=== PATIENT | male | born 1970 | race African-American/Black ===

== ENCOUNTER 2020-03-01 09:49 | Inpatient (IN) | payer MEDICAID ==
[~2020-03-01] VITALS: Ht 172.7 cm; Wt 75.4 kg
[2020-03-01] MEDS ORDERED: Omnipaque-300 100ml vial INJ PRN (10:00)
[2020-03-01] MEDS ORDERED: Hydromorphone 0.5mg/0.5ml inj IVP ONE (10:00)
--- NOTE | 2020-03-01 10:11 | Emergency Room Report ---
History of Present Illness General Chief Complaint: Abdominal Pain Source: Patient Present Illness HPI 49-year-old male history of pancreatitis presents with recurrent epigastric pain started 7 days ago patient reports drinking after his brothers , he endorses sharp pain aggravated with alcohol no alleviating factors severity is moderate, constant he endorses nausea vomiting, no fevers no chills patient presents for evaluation and treatment Allergies: Coded Allergies: No Known Allergies (Unverified , 06/20/19) COVID-19 Screening Contact w/high risk pt: No Experienced COVID-19 symptoms?: No COVID-19 Testing performed MOTOR EQUIPMENT SERGEANT: No Patient History Past Medical History: see triage record Reviewed Nursing Documentation: PMH: Agreed; PSxH: Agreed Nursing Documentation-PMH Past Medical History: No History, Except For Hx Cardiac Problems: No - pancretitis Review of Systems All Other Systems: negative except mentioned in HPI Physical Exam Vital Signs Date Time Temp Pulse Resp B/P (MAP) Pulse Ox O2 Delivery O2 Flow Rate FiO2 03/01/20 09:56 97.9 70 17 213/100 (137) 98 Room Air Sp02 EP Interpretation: reviewed, normal General Appearance: well appearing, no apparent distress, alert Head: normocephalic, atraumatic Eyes: bilateral eye PERRL, bilateral eye EOMI ENT: uvula midline, moist mucus membranes Neck: supple, thyroid normal, supple/symm/no masses Respiratory: lungs clear, no respiratory distress, no retraction, no accessory muscle use Cardiovascular #1: normal peripheral pulses, no edema, no gallop, no murmur, tachycardia Gastrointestinal: soft, no guarding, no rebound, tenderness - Epigastrically Musculoskeletal: normal inspection Neurologic: alert, oriented x3 Psychiatric: mood/affect normal Skin: no rash, warm/dry Procedures Critical Care Time Critical Care Time Given the critical condition in which the patient arrived, the patient was immediately assessed by myself and the nurse, and cardiac monitoring initiated due to the potential for rapid decompensation of the patient's clinical condition. During the course of the patient's stay, I spent a considerable amount of time at the bedside performing serial re-evaluations of the patient's hemodynamic and clinical status because of the recognized potential threat to life or limb in this condition. I then had a chance to review not only all of the available current laboratory and radiographic studies obtained today, but I also reviewed old records available to me at the time. Additionally, any [facility] information available including dry cleaner records were reviewed. Sequential vital signs were obtained. Critical Care time of 33 minutes was performed exclusive of billable procedures. Medical Decision Making Diagnostic Impression: Primary Impression: Abdominal pain Qualified Codes: R10.9 - Unspecified abdominal pain Additional Impressions: WILMA (acute kidney injury) GI bleed Qualified Codes: K92.2 - Gastrointestinal hemorrhage, unspecified ER Course 49-year-old male presents with epigastric pain differential diagnosis includes alcoholic gastritis, pancreatitis, GI bleed, ulcer Reevaluation 10:21 AM patient is vomiting blood Patient given Protonix, patient also found to have an WILMA, patient resuscitated with NS. Protonix for possible GI bleed Patient admitted to Dr. Blair Navarro Laboratory Tests Test 03/01/20 10:16 03/01/20 12:15 White Blood Count 7.6 K/UL (4.8-10.8) Red Blood Count 7.05 M/UL (4.70-6.10) H Hemoglobin 19.6 G/DL (14.2-18.0) *H Hematocrit 58.2 % (42.0-52.0) H Mean Corpuscular Volume 83 FL (80-99) Mean Corpuscular Hemoglobin 27.8 PG (27.0-31.0) Mean Corpuscular Hemoglobin Concent 33.7 G/DL (32.0-36.0) Red Cell Distribution Width 11.5 % (11.6-14.8) L Platelet Count 271 K/UL (150-450) Mean Platelet Volume 6.7 FL (6.5-10.1) Neutrophils (%) (Auto) 54.2 % (45.0-75.0) Lymphocytes (%) (Auto) 32.1 % (20.0-45.0) Monocytes (%) (Auto) 8.4 % (1.0-10.0) Eosinophils (%) (Auto) 0.6 % (0.0-3.0) Basophils (%) (Auto) 4.8 % (0.0-2.0) H Sodium Level 127 MMOL/L (136-145) L Potassium Level 4.3 MMOL/L (3.5-5.1) Chloride Level 89 MMOL/L (98-107) L Carbon Dioxide Level 25 MMOL/L (21-32) Anion Gap 13 mmol/L (5-15) Blood Urea Nitrogen 75 mg/dL (7-18) H Creatinine 3.2 MG/DL (0.55-1.30) H Estimated Glomerular Filtration Rate 25.3 mL/min (>60) Glucose Level 144 MG/DL (74-106) H Calcium Level 10.2 MG/DL (8.5-10.1) H Total Bilirubin 0.8 MG/DL (0.2-1.0) Aspartate Amino Transferase (AST) 32 U/L (15-37) Alanine Aminotransferase (ALT) 33 U/L (12-78) Alkaline Phosphatase 57 U/L (46-116) Total Creatine Kinase 635 U/L (26-308) H Troponin I 0.003 ng/mL (0.000-0.056) Total Protein 8.5 G/DL (6.4-8.2) H Albumin 5.0 G/DL (3.4-5.0) Globulin 3.5 g/dL Albumin/Globulin Ratio 1.4 (1.0-2.7) Lipase 345 U/L (73-393) Urine Opiates Screen Negative (NEGATIVE) Urine Barbiturates Screen Negative (NEGATIVE) Phencyclidine (PCP) Screen Negative (NEGATIVE) Urine Amphetamines Screen Negative (NEGATIVE) Urine Benzodiazepines Screen Negative (NEGATIVE) Urine Cocaine Screen Negative (NEGATIVE) Urine Marijuana (THC) Screen Positive (NEGATIVE) H Microbiology Date/Time Source Procedure Growth Status 03/01/20 11:25 Nasopharynx SARS-CoV-2 RdRp Gene Assay - Final Complete EKG Diagnostic Results EKG Time: 10:00 EP Interpretation: Sinus tachycardia, rate 105, QTc 417, no acute ST lesions, normal axis Rhythm Strip Diag. Results Rhythm Strip Time: 10:11 EP Interpretation: yes Rate: 110 Rhythm: other - Sinus tachycardia Chest X-Ray Diagnostic Results Chest X-Ray Diagnostic Results : Chest X-Ray Ordered: Yes # of Views/Limited/Complete: 1 View Indication: Chest Pain EP Interpretation: Yes Interpretation: no consolidation, no effusion, no pneumothorax, no acute cardiopulmonary disease Impression: No acute disease Electronically Signed by: Keshawn Neil MD CT/MRI/US Diagnostic Results CT/MRI/US Diagnostic Results : Impression Procedure: CT Abdomen Pelvis WO Contrast Indication: Abdominal pain Technique: Spiral acquisitions obtained through the abdomen and pelvis. No oral contrast utilized, per emergency room physician request No IV contrast utilized, per referring physician request.. Multiplanar reconstructions were generated. Total dose length product 236mGycm. CTDIvol(s) 4 mGy. Dose reduction achieved using automated exposure control Comparison: 06/20/2019 Findings: Lack of enteric contrast limits assessment of the GI tract. No evidence of diverticulosis or diverticulitis. The appendix is normal. No small bowel distention. No free or loculated intraperitoneal gas or fluid is evident. Distal esophagus, stomach, duodenum are unremarkable. Lack of IV contrast limits assessment of the solid organs. The liver, gallbladder, bile ducts, pancreas, spleen, adrenals, kidneys are unremarkable. No retroperitoneal or mesenteric mass or adenopathy. No pelvic mass or adenopathy. The included lung bases are clear. The bones are unremarkable. Impression: Limited assessment of the GI tract, due to lack of enteric contrast administration No definite acute or significant abnormality The CT scanner at [facility] is accredited by the [employer] and the scans are performed using protocols designed to limit radi ation exposure to as low as reasonably achievable to attain images of sufficient resolution adequate for diagnostic evaluation. Dictated By: Gilmar Alonzo MD Electronically Signed By:Gilmar Alonzo MD Signed Date/Time03/01/20 1412 CC: Keshawn Neil [id number] 0 Last Vital Signs Date Time Temp Pulse Resp B/P (MAP) Pulse Ox O2 Delivery O2 Flow Rate FiO2 03/01/20 09:56 97.9 70 17 213/100 (137) 98 Room Air Disposition: ADMITTED INPATIENT Condition: Critical Scripts No Active Prescriptions or Reported Meds Keshawn Neil MD Mar 01, 2020 10:11
--- NOTE | 2020-03-01 10:15 | NUR ---
ED Nurse Note: Patient presents to ER due to right lower abdominal pain with N/V (bile). Patient was recently d/c from [facility] 2 days ago for same complaint. Patient reports he started drinking beer 2 cans a day x 1 weekn as his brother recently . Reports no cough, loss of taste or smell. Patient had Covid test and it was negative. Patient awake, alert, oriented x 4. Regular, unlabored breathing noted. Patient has mask on. Placed patient on quality assurance monitor body. Bed in lowest position. Call light within reach.
--- NOTE | 2020-03-01 10:25 | NUR ---
ED Nurse Note: Patient c/o abdominal pain, cramping, N/V. Patient vomited pink colored emesis, approximately 30ml @ 1017. Dr. Patterson notified and came to bedside. Placed patient in semi-sebastian position. Increased pain with high sebastian position. Emesis bag/ urinal at bedside. Provided comfort measures. Bed in lowset position.
[2020-03-01] MEDS ORDERED: Pantoprazole Inj IVP ONE (10:30)
[2020-03-01 10:37] VITALS: BP 138/107
[2020-03-01 10:39] LABS: BASOPHILS % (AUTO) 4.8 % (0.0-2.0); EOSINOPHILS % (AUTO) 0.6 % (0.0-3.0); HEMATOCRIT 58.2 % (42.0-52.0); LYMPHOCYTES % (AUTO) 32.1 % (20.0-45.0); MEAN CORPUSCULAR VOLUME 83 FL (80-99); MONOCYTES % (AUTO) 8.4 % (1.0-10.0); NEUTROPHILS % (AUTO) 54.2 % (45.0-75.0); PLATELET COUNT 271 K/UL (150-450); RED BLOOD COUNT 7.05 M/UL (4.70-6.10); RED CELL DISTRIBUTION WIDTH 11.5 % (11.6-14.8); WHITE BLOOD COUNT 7.6 K/UL (4.8-10.8)
--- NOTE | 2020-03-01 10:40 | NUR ---
ED Nurse Note: Patient reports decreased abdominal pain after vomiting. No facial grimacing or guarding noted. Patient in on phone.
[2020-03-01 10:44] LABS: HEMOGLOBIN 19.6 G/DL (14.2-18.0)
[2020-03-01 10:52] LABS: ANION GAP 13 mmol/L (5-15); BLOOD UREA NITROGEN 75 mg/dL (7-18); CALCIUM 10.2 MG/DL (8.5-10.1); CARBON DIOXIDE 25 MMOL/L (21-32); CHLORIDE 89 MMOL/L (98-107); CREATININE 3.2 MG/DL (0.55-1.30); POTASSIUM 4.3 MMOL/L (3.5-5.1); SODIUM 127 MMOL/L (136-145)
[2020-03-01 11:03] LABS: ALANINE AMINOTRANSFERASE 33 U/L (12-78); ALBUMIN/GLOBULIN RATIO 1.4 (1.0-2.7); ALKALINE PHOSPHATASE 57 U/L (46-116); ASPARTATE AMINO TRANSFERASE 32 U/L (15-37); BILIRUBIN,TOTAL 0.8 MG/DL (0.2-1.0); CREATINE KINASE 635 U/L (26-308)
--- NOTE | 2020-03-01 11:12 | NUR ---
ED Nurse Note: Report given to GABY Hancock.
--- NOTE | 2020-03-01 12:09 | NUR ---
ED Nurse Note: Patient has abnormal CR 3.2. Dr. Neil notified and ordered CT abd/pelvis without contrast.
--- NOTE | 2020-03-01 12:30 | NUR ---
ED Nurse Note: Patient voided x 1 and urine sent.
[2020-03-01 12:54] VITALS: BP 149/92
--- NOTE | 2020-03-01 12:54 | NUR ---
ED Nurse Note: Patient resting in bed. Reports no pain. Bed in lowest position. Urinal at bedside.
--- NOTE | 2020-03-01 13:00 | NUR ---
ED Nurse Note: called equipment operator/laborer/supervisor and will process UA.
[2020-03-01 14:00] VITALS: BP 124/72
--- NOTE | 2020-03-01 14:11 | Consultation ---
Consult Note Consult Note I am asked to evaluate the patient at the request of Dr. Navarro for renal failure 49-year-old male history of pancreatitis presents with recurrent epigastric pain started 7 days ago patient reports drinking after his brothers , he endorses sharp pain aggravated with alcohol no alleviating factors severity is moderate, constant he endorses nausea vomiting, no fevers no chills patient presents for evaluation and treatment No Known Allergies (Unverified , 06/20/19) Patient has history of drinking alcohol and marijuana abuse COVID-19 Screening Contact w/high risk pt: No Experienced COVID-19 symptoms?: No COVID-19 Testing performed COUPON COLLECTION CLERK: No Past Medical History: No History, Except For Hx Cardiac Problems: No - pancretitis Vital Signs Date Time Temp Pulse Resp B/P (MAP) Pulse Ox O2 Delivery O2 Flow Rate FiO2 03/01/20 09:56 97.9 70 17 213/100 (137) 98 Room Air Sp02 EP Interpretation: reviewed, normal PHYSICAL EXAMINATION: GENERAL: Pleasant man, seen in his room. HEENT: Normocephalic and atraumatic. Sclerae anicteric. Oropharynx clear. NECK: Supple. CHEST: Clear to auscultation. CARDIOVASCULAR: Revealed a regular rate. ABDOMEN: Soft with minimal central tenderness to palpation without guarding or rebound. EXTREMITIES: Revealed no edema. NEUROLOGIC: Exam was noted. LABORATORY DATA: Reviewed and most notably the patient is hemoconcentrated and also he has a low sodium of 125 with renal failure and a creatinine of 2.2. His total CPK was somewhat elevated, but he is receiving IV fluids. . Assessment/Plan Imp: Acute renal failure, dehydration, possible rhabdo Hyponatremia, electrolyte imbalances EtOH abuse Abdominal pain, gastritis, history of pancreatitis Positive drug screen Plan: Hydrate with saline Monitor renal parameters Monitor hemoglobin hematocrit Per orders Henry Washington MD Mar 01, 2020 14:11
[2020-03-01] MEDS ORDERED: Metoclopramide 10mg/2ml Inj IVP PRN (14:15)
--- NOTE | 2020-03-01 14:18 | Diagnostic Imaging Report ---
Indication: Abdominal pain Technique: Spiral acquisitions obtained through the abdomen and pelvis. No oral contrast utilized, per emergency room physician request No IV contrast utilized, per referring physician request.. Multiplanar reconstructions were generated. Total dose length product 236mGycm. CTDIvol(s) 4 mGy. Dose reduction achieved using automated exposure control Comparison: 06/20/2019 Findings: Lack of enteric contrast limits assessment of the GI tract. No evidence of diverticulosis or diverticulitis. The appendix is normal. No small bowel distention. No free or loculated intraperitoneal gas or fluid is evident. Distal esophagus, stomach, duodenum are unremarkable. Lack of IV contrast limits assessment of the solid organs. The liver, gallbladder, bile ducts, pancreas, spleen, adrenals, kidneys are unremarkable. No retroperitoneal or mesenteric mass or adenopathy. No pelvic mass or adenopathy. The included lung bases are clear. The bones are unremarkable. Impression: Limited assessment of the GI tract, due to lack of enteric contrast administration No definite acute or significant abnormality The CT scanner at [facility] is accredited by the [employer] and the scans are performed using protocols designed to limit radiation exposure to as low as reasonably achievable to attain images of sufficient resolution adequate for diagnostic evaluation.
--- NOTE | 2020-03-01 14:42 | NUR ---
ED Nurse Note: Report given to GABY Marcos at [facility].
--- NOTE | 2020-03-01 14:45 | NUR ---
NURSE NOTES: Nurse report received from MECHANICAL MANUFACTURING TECHNICIAN Eileen peterson a new admission from ED.
--- NOTE | 2020-03-01 14:57 | NUR ---
ED Nurse Note: Spoke to serg Terrell and confirmed that they will process UA.
--- NOTE | 2020-03-01 14:58 | NUR ---
ED Nurse Note: TRANSFER TO FLOOR: Patient transferred to as ordered. Report given to GABY Marcos. Patient transferred to SDU with GABY Hancock and EMANI Arevalo with all his belongings.
--- NOTE | 2020-03-01 15:00 | NUR ---
NURSE NOTES: Received pt ,a new admission fr ED brought to SDU per bed awake alert oriented accompanied by a transporter and INSPECTOR MACHINE CUT GLASS Clara.Pt on RA noted no resp distress,denies abd pain at this time,SR on the monitor,IV site to LH intact ,SR up x2 HOB elevated,bed lock in lowest position,call blackmon placed at bedside,instructed to use if assistance needed,verbalized understanding,will continue with plans of care.
[2020-03-01 15:02] LABS: APPEARANCE,URINE CLEAR; BILIRUBIN, URINE NEGATIVE (NEGATIVE); COLOR,URINE PALE YELLOW; GLUCOSE, URINE (UA) NEGATIVE (NEGATIVE); KETONES,URINE NEGATIVE (NEGATIVE); LEUKOCYTE ESTERASE ,URINE NEGATIVE (NEGATIVE); NITRITE,URINE NEGATIVE (NEGATIVE); PH,URINE 5 (4.5-8.0); PROTEIN,URINE 2+ (NEGATIVE); UROBILINOGEN,URINE NORMAL MG/DL (0.0-1.0)
--- NOTE | 2020-03-01 15:30 | NUR ---
NURSE NOTES: Call placed to DR Navarro for admission orders spoke with charter boat operator Ginny.
--- NOTE | 2020-03-01 17:00 | NUR ---
NURSE NOTES: Dr Rojo called asking for the pt's room no.asked for diet order but no order given, said he had not seen the pt.
--- NOTE | 2020-03-01 17:24 | Diagnostic Imaging Report ---
Indication: Cough Technique: One view of the chest Comparison: none Findings: Lungs and pleural spaces are clear. Heart size is normal. Impression: No acute process
--- NOTE | 2020-03-01 19:00 | NUR ---
NURSE NOTES: Pt ambulated to bathroom with steady gait,would try to do BM
--- NOTE | 2020-03-01 19:26 | NUR ---
NURSE HAND-OFF REPORT: Important Events on Shift:N/A Patient Status: Stable Diet: NPO Pending Orders: N/A Pending Results/Labs: Pending MD notification:N/A Latest Vital Signs: Temperature 98.5 , Pulse 73 , B/P 149 /92 , Respiratory Rate 16 , O2 SAT 99 , Room Air, O2 Flow Rate . Vital Sign Comment: N/A EKG Rhythm: Sinus Rhythm Rhythm change?: N MD Notified?: - MD Response: Latest Coronel Fall Score: 0 Fall Risk: Low Risk Safety Measures: Call light Within Reach, Bed Alarm Zone 1, Side Rails Side Rails x2, Bed position Low and Locked. Fall Precautions: Report given to Dulce Maria Berman RN.
--- NOTE | 2020-03-01 19:27 | NUR ---
NURSE NOTES: Received pt from GABY Marcos. Pt awake, alert, and talkative. Called and left a message with Dr. Lupe ramires. Awaiting call back. Bed in lowest position. Call light within reach. Will continue to monitor.
--- NOTE | 2020-03-01 19:59 | NUR ---
NURSE NOTES: Called and left a message with Dr. Navarro's cell phone number. Awaiting call back.
--- NOTE | 2020-03-01 20:08 | General Progress Note ---
Subjective Allergies: Coded Allergies: No Known Allergies (Unverified , 06/20/19) Objective Last 24 Hour Vital Signs Date Time Temp Pulse Resp B/P (MAP) Pulse Ox O2 Delivery O2 Flow Rate FiO2 03/01/20 16:00 Room Air 03/01/20 15:36 Room Air 03/01/20 15:35 73 03/01/20 14:43 74 14 136/89 99 Room Air 03/01/20 14:00 98.6 74 14 124/72 99 Room Air 03/01/20 12:54 98.5 82 16 149/92 99 Room Air 03/01/20 10:44 97.8 03/01/20 10:37 98 16 138/107 99 Room Air 03/01/20 10:15 110 18 Room Air 03/01/20 09:56 97.9 70 17 213/100 (137) 98 Room Air Laboratory Tests 03/01/20 10:16: White Blood Count 7.6, Red Blood Count 7.05H, Hemoglobin 19.6*H, Hematocrit 58.2H, Mean Corpuscular Volume 83, Mean Corpuscular Hemoglobin 27.8, Mean Corpuscular Hemoglobin Concent 33.7, Red Cell Distribution Width 11.5L, Platelet Count 271, Mean Platelet Volume 6.7, Neutrophils (%) (Auto) 54.2, Lymphocytes (%) (Auto) 32.1, Monocytes (%) (Auto) 8.4, Eosinophils (%) (Auto) 0.6, Basophils (%) (Auto) 4.8H, Sodium Level 127L, Potassium Level 4.3, Chloride Level 89L, Carbon Dioxide Level 25, Anion Gap 13, Blood Urea Nitrogen 75H, Creatinine 3.2H, Estimat Glomerular Filtration Rate 25.3, Glucose Level 144H, Calcium Level 10.2H , Total Bilirubin 0.8, Aspartate Amino Transf (AST/SGOT) 32, Alanine Am inotransferase (ALT/SGPT) 33, Alkaline Phosphatase 57, Total Creatine Kinase 635H, Troponin I 0.003, Total Protein 8.5H, Albumin 5.0, Globulin 3.5, Albumin/Globulin Ratio 1.4, Lipase 345 03/01/20 12:15: Urine Color Pale yellow, Urine Appearance Clear, Urine pH 5, Urine Specific [place] 1.020, Urine Protein 2+H, Urine Glucose (UA) Negative, Urine Ketones Negative, Urine Blood 2+H, Urine Nitrite Negative, Urine Bilirubin Negative, Urine Urobilinogen Normal, Urine Leukocyte Esterase Negative, Urine RBC 2-4H, Urine WBC 2-4, Urine Squamous Epithelial Cells Occasional, Urine Bacteria Few, Urine Hyaline Casts 10-15H, Urine Random Sodium < 20L, Urine Opiates Screen Negative, Urine Barbiturates Screen Negative, Phencyclidine (PCP) Screen Negative, Urine Amphetamines Screen Negative, Urine Benzodiazepines Screen Negative, Urine Cocaine Screen Negative, Urine Marijuana (THC) Screen PositiveH Height (Feet): 5 Height (Inches): 8.00 Weight (Pounds): 172 Assessment/Plan Assessment/Plan: Assessment - abd pain, ? EtOH gastritis - Etoh abuse - dehydration, free water deficit - h/o pancreatitis Recommendations - clear liquid - PPI - Follow labs and exam - check OB Thank you MD Mike Mckeon Payman MD Mar 01, 2020 20:08
--- NOTE | 2020-03-01 20:15 | NUR ---
NURSE NOTES: Dr. Navarro called back saying that Felix already put orders and to consult Carlos Eduardoflavio. Will call Dr. Washington for a diet and DVT prophylaxis order. Will also ask for something for pain.
--- NOTE | 2020-03-01 20:25 | NUR ---
NURSE NOTES: Dr. Washington called and gave the following orders: - NPO except meds - heparin 5000 Q12hr - He will put pain meds in himself. Will input orders and continue to monitor.
[2020-03-01] MEDS ORDERED: Hydromorphone 0.5mg/0.5ml inj IVP PRN (20:30)
[2020-03-01 20:46] VITALS: BP 125/78
--- NOTE | 2020-03-01 21:15 | Consultation ---
DATE OF CONSULTATION: 03/01/2020 GASTROENTEROLOGY CONSULTATION REPORT CONSULTING PHYSICIAN: Jessica Mckeon MD. CHIEF COMPLAINT: I was asked to see this patient for evaluation of abdominal pain. HISTORY OF PRESENT ILLNESS: The patient is a 49-year-old man with a history of alcohol use who comes into the hospital with a 4 to 5 days of abdominal pain. He has been vomiting for about 2 days. He reports the color has been green in the emesis. He has had no bowel movements. He drinks few beers and also whisky daily. He has had a past history of pancreatitis. FAMILY HISTORY: Positive for pancreatitis in the mother. SOCIAL HISTORY: Patient is . He has 4 children of his own and 4 adopted children. He smokes marijuana and drinks alcohol as described. REVIEW OF SYSTEMS: The patient reports has drank red color juice before his emesis today and therefore the red colored emesis in the emergency room may have been the juice color. PHYSICAL EXAMINATION: GENERAL: Pleasant man, seen in his room. HEENT: Normocephalic and atraumatic. Sclerae anicteric. Oropharynx clear. NECK: Supple. CHEST: Clear to auscultation. CARDIOVASCULAR: Revealed a regular rate. ABDOMEN: Soft with minimal central tenderness to palpation without guarding or rebound. EXTREMITIES: Revealed no edema. NEUROLOGIC: Exam was noted. LABORATORY DATA: Reviewed and most notably the patient is hemoconcentrated and also he has a low sodium of 125 with renal failure and a creatinine of 2.2. His total CPK was somewhat elevated, but he is receiving IV fluids. ASSESSMENT: This patient presents with abdominal pain, nausea, vomiting, and he is volume depleted. He should receive aggressive IV hydration and his counts and numbers should be all followed. A proton pump inhibitor can be given and diet can be slowly advanced. He may have had upper gastrointestinal bleeding, but his blood counts can be followed and the stools can be checked for Hemoccult. A consideration can be made to do an endoscopy if necessary. He was strongly advised to discontinue alcohol. RECOMMENDATIONS: Per above discussion and per orders written in the chart. Thank you for asking me to participate in the care of this patient. Jessica Mckeon M.D. DR: JANET JOB#: [id number] CC: SHORTY
[2020-03-01] MEDS: Pantoprazole Inj IVP SCH (21:21)
[2020-03-02] VITALS: BP 124/71
[2020-03-02 04:00] VITALS: BP 121/71
[2020-03-02 05:37] LABS: BASOPHILS % (AUTO) 1.7 % (0.0-2.0); HEMATOCRIT 38.1 % (42.0-52.0); HEMOGLOBIN 12.9 G/DL (14.2-18.0); LYMPHOCYTES % (AUTO) 36.7 % (20.0-45.0); MEAN CORPUSCULAR VOLUME 83 FL (80-99); MONOCYTES % (AUTO) 9.9 % (1.0-10.0); NEUTROPHILS % (AUTO) 48.7 % (45.0-75.0); PLATELET COUNT 203 K/UL (150-450); RED BLOOD COUNT 4.57 M/UL (4.70-6.10); RED CELL DISTRIBUTION WIDTH 11.6 % (11.6-14.8); WHITE BLOOD COUNT 6.7 K/UL (4.8-10.8)
[2020-03-02 06:21] LABS: ALANINE AMINOTRANSFERASE 36 U/L (12-78); ALBUMIN 3.3 G/DL (3.4-5.0); ALBUMIN/GLOBULIN RATIO 1.6 (1.0-2.7); ALKALINE PHOSPHATASE 37 U/L (46-116); ANION GAP 7 mmol/L (5-15); ASPARTATE AMINO TRANSFERASE 30 U/L (15-37); BILIRUBIN,TOTAL 0.4 MG/DL (0.2-1.0); BLOOD UREA NITROGEN 43 mg/dL (7-18); CALCIUM 7.6 MG/DL (8.5-10.1); CARBON DIOXIDE 26 MMOL/L (21-32); CHLORIDE 101 MMOL/L (98-107); CHOLESTEROL 99 MG/DL (< 200); CREATINE KINASE 497 U/L (26-308); CREATININE 1.9 MG/DL (0.55-1.30); GAMMA GLUTAMYL TRANSPEPTIDASE 18 U/L (5-85); HDL CHOLESTEROL 34 MG/DL (40-60); PHOSPHORUS 2.4 MG/DL (2.5-4.9); POTASSIUM 3.6 MMOL/L (3.5-5.1); SODIUM 134 MMOL/L (136-145); TRIGLYCERIDES 76 MG/DL (30-150)
--- NOTE | 2020-03-02 07:20 | NUR ---
NURSE NOTES: Received report from GABY العراقي. Pt is awake, lying comfortably in bed, not in acute distress. Pt is alert and oriented, following instructions. Pt is NPO upon admission, denies abdominal pain. COVID neg., ambulatory, steady. Sinus Rhythm on the satellite project site monitor. Skin is intact. IV is intact and patent. Will continue to monitor the pt.
--- NOTE | 2020-03-02 07:27 | NUR ---
NURSE HAND-OFF REPORT: Important Events on Shift: Received orders. Pt no longer experiencing abdominal pain or nausea Patient Status: stable Diet: npo Pending Orders: y Pending Results/Labs:y Pending MD notification:y Latest Vital Signs: Temperature 97.4 , Pulse 85 , B/P 121 /71 , Respiratory Rate 20 , O2 SAT 98 , Room Air, O2 Flow Rate . Vital Sign Comment: stable EKG Rhythm: Sinus Rhythm Rhythm change?: N MD Notified?: - MD Response: Latest Coronel Fall Score: 35 Fall Risk: Medium Risk Safety Measures: Call light Within Reach, Bed Alarm Zone 1, Side Rails Side Rails x2, Bed position Low and Locked. Fall Precautions: n Yellow Socks Yellow Gown Door Sign Patient Fall Education y Report given to GABY Chavarria.
--- NOTE | 2020-03-02 07:49 | NUR ---
NURSE NOTES: Left a message to Dr. Mckeon regarding pt's diet. Awaiting call back and new order.
[2020-03-02 08:00] VITALS: BP 119/63
[2020-03-02] MEDS: Pantoprazole Inj IVP SCH (08:43)
[2020-03-02] MEDS: Heparin 5000 units/ml inj SUBQ SCH ×2 (08:44→21:26)
--- NOTE | 2020-03-02 09:21 | Nephrology Progress Note ---
Assessment/Plan Problem List: (1) WILMA (acute kidney injury) (2) Rhabdomyolysis (3) Hyponatremia (4) Dehydration (5) Elevated lipase Assessment Acute renal failure, dehydration, possible rhabdo Hyponatremia, electrolyte imbalances EtOH abuse Abdominal pain, gastritis, history of pancreatitis Positive drug screen Plan March 02: Normal saline down to 75 cc an hour. Continue per GI. Continue to monitor renal parameters. Okay to transfer to [facility] from renal standpoint of view. Hydrate with saline Monitor renal parameters Monitor hemoglobin hematocrit Per orders Subjective ROS Limited/Unobtainable: No Constitutional: Reports: malaise Objective Objective Last 24 Hour Vital Signs Date Time Temp Pulse Resp B/P (MAP) Pulse Ox O2 Delivery O2 Flow Rate FiO2 03/02/20 04:00 85 03/02/20 04:00 97.4 80 20 121/71 (88) 98 03/02/20 04:00 Room Air 03/02/20 00:00 Room Air 03/02/20 00:00 99.1 83 20 124/71 (88) 98 03/02/20 00:00 79 03/01/20 20:46 98.8 72 20 125/78 (94) 100 03/01/20 20:00 Room Air 03/01/20 20:00 75 03/01/20 16:00 Room Air 03/01/20 15:36 Room Air 03/01/20 15:35 73 03/01/20 14:43 74 14 136/89 99 Room Air 03/01/20 14:00 98.6 74 14 124/72 99 Room Air 03/01/20 12:54 98.5 82 16 149/92 99 Room Air 03/01/20 10:44 97.8 03/01/20 10:37 98 16 138/107 99 Room Air 03/01/20 10:15 110 18 Room Air 03/01/20 09:56 97.9 70 17 213/100 (137) 98 Room Air Intake and Output 03/01/20 03/02/20 19:00 07:00 Intake Total 3125 ml Output Total 430 ml Balance 2695 ml Intake IV Total 3125 ml Output Urine Total 400 ml Emesis 30 ml Laboratory Tests 03/01/20 10:16: White Blood Count 7.6, Red Blood Count 7.05H, Hemoglobin 19.6*H, Hematocrit 58.2H, Mean Corpuscular Volume 83, Mean Corpuscular Hemoglobin 27.8, Mean C orpuscular Hemoglobin Concent 33.7, Red Cell Distribution Width 11.5L, Platelet Count 271, Mean Platelet Volume 6.7, Neutrophils (%) (Auto) 54.2, Lymphocytes (%) (Auto) 32.1, Monocytes (%) (Auto) 8.4, Eosinophils (%) (Auto) 0.6, Basophils (%) (Auto) 4.8H, Sodium Level 127L, Potassium Level 4.3, Chloride Level 89L, Carbon Dioxide Level 25, Anion Gap 13, Blood Urea Nitrogen 75H, Creatinine 3.2H, Estimat Glomerular Filtration Rate 25.3, Glucose Level 144H, Calcium Level 10.2H , Total Bilirubin 0.8, Aspartate Amino Transf (AST/SGOT) 32, Alanine Aminotransferase (ALT/SGPT) 33, Alkaline Phosphatase 57, Total Creatine Kinase 635H, Troponin I 0.003, Total Protein 8.5H, Albumin 5.0, Globulin 3.5, Albumin/Globulin Ratio 1.4, Lipase 345 03/01/20 12:15: Urine Color Pale yellow, Urine Appearance Clear, Urine pH 5, Urine Specific [place] 1.020, Urine Protein 2+H, Urine Glucose (UA) Negative, Urine Ketones Negative, Urine Blood 2+H, Urine Nitrite Negative, Urine Bilirubin Negative, Urine Urobilinogen Normal, Urine Leukocyte Esterase Negative, Urine RBC 2-4H, Urine WBC 2-4, Urine Squamous Epithelial Cells Occasional, Urine Bacteria Few, Urine Hyaline Casts 10-15H, Urine Random Sodium < 20L, Urine Opiates Screen Negative, Urine Barbiturates Screen Negative, Phencyclidine (PCP) Screen Negative, Urine Amphetamines Screen Negative, Urine Benzodiazepines Screen Negative, Urine Cocaine Screen Negative, Urine Marijuana (THC) Screen PositiveH 03/02/20 03:55: White Blood Count 6.7, Red Blood Count 4.57L, Hemoglobin 12.9#L, Hematocrit 38.1#L, Mean Corpuscular Volume 83, Mean Corpuscular Hemoglobin 28.1, Mean Corpuscular Hemoglobin Concent 33.7, Red Cell Distribution Width 11.6, Platelet Count 203, Mean Platelet Volume 5.7L, Neutrophils (%) (Auto) 48.7, Lymphocytes (%) (Auto) 36.7, Monocytes (%) (Auto) 9.9, Eosinophils (%) (Auto) 3.0, Basophils (%) (Auto) 1.7, Sodium Level 134L, Potassium Level 3.6, Chloride Level 101, Carbon Dioxide Level 26, Anion Gap 7, Blood Urea Nitrogen 43H, Creatinine 1.9H, Estimat Glomerular Filtration Rate 46.3, Glucose Level 104, Calcium Level 7.6#L, Total Bilirubin 0.4, Aspartate Amino Transf (AST/SGOT) 30, Alanine Aminotrans ferase (ALT/SGPT) 36, Alkaline Phosphatase 37L, Total Creatine Kinase 497H, Total Protein 5.4#L, Albumin 3.3L, Globulin 2.1, Albumin/Globulin Ratio 1.6, Lipase 554H, Hemoglobin A1c 6.0, Lactic Acid Level 0.60, Uric Acid 6.4, Phosphorus Level 2.4L, Magnesium Level 2.6H, Gamma Glutamyl Transpeptidase 18, C-Reactive Protein, Quantitative < 0.4, Pro-B-Type Natriuretic Peptide 47, Triglycerides Level 76, Cholesterol Level 99, LDL Cholesterol 54, HDL Cholesterol 34L, Cholesterol/HDL Ratio 2.9L, Vitamin B12 Level 1218H, Folate 6.2L, Thyroid Stimulating Hormone (TSH) 1.082 Height (Feet): 5 Height (Inches): 8.00 Weight (Pounds): 172 General Appearance: no apparent distress Cardiovascular: normal rate Respiratory/Chest: lungs clear Abdomen: soft, distended Objective No change Henry Washington MD Mar 02, 2020 09:21
--- NOTE | 2020-03-02 10:47 | General Progress Note ---
Subjective ROS Limited/Unobtainable: Yes Allergies: Coded Allergies: No Known Allergies (Unverified , 06/20/19) Objective Last 24 Hour Vital Signs Date Time Temp Pulse Resp B/P (MAP) Pulse Ox O2 Delivery O2 Flow Rate FiO2 03/02/20 10:08 72 03/02/20 08:00 97.5 74 20 119/63 (81) 100 74 03/02/20 08:00 Room Air 03/02/20 04:00 85 03/02/20 04:00 97.4 80 20 121/71 (88) 98 03/02/20 04:00 Room Air 03/02/20 00:00 Room Air 03/02/20 00:00 99.1 83 20 124/71 (88) 98 03/02/20 00:00 79 03/01/20 20:46 98.8 72 20 125/78 (94) 100 03/01/20 20:00 Room Air 03/01/20 20:00 75 03/01/20 16:00 Room Air 03/01/20 15:36 Room Air 03/01/20 15:35 73 03/01/20 14:43 74 14 136/89 99 Room Air 03/01/20 14:00 98.6 74 14 124/72 99 Room Air 03/01/20 12:54 98.5 82 16 149/92 99 Room Air 03/01/20 10:44 97.8 03/01/20 10:37 98 16 138/107 99 Room Air Intake and Output 03/01/20 03/02/20 19:00 07:00 Intake Total 3125 ml Output Total 430 ml Balance 2695 ml IV Total 3125 ml Output Urine Total 400 ml Emesis 30 ml Laboratory Tests 03/01/20 12:15: Urine Color Pale yellow, Urine Appearance Clear, Urine pH 5, Urine Specific [place] 1.020, Urine Protein 2+H, Urine Glucose (UA) Negative, Urine Ketones Negative, Urine Blood 2+H, Urine Nitrite Negative, Urine Bilirubin Negative, Urine Urobilinogen Normal, Urine Leukocyte Esterase Negative, Urine RBC 2-4H, Urine WBC 2-4, Urine Squamous Epithelial Cells Occasional, Urine Bacteria Few, Urine Hyaline Casts 10-15H, Urine Random Sodium < 20L, Urine Opiates Screen Negative, Urine Barbiturates Screen Negative, Phencyclidine (PCP) Screen Negative, Urine Amphetamines Screen Negative, Urine Benzodiazepines Screen Negative, Urine Cocaine Screen Negative, Urine Marijuana (THC) Screen PositiveH 03/02/20 03:55: White Blood Count 6.7, Red Blood Count 4.57L, Hemoglobin 12.9#L, Hematocrit 3 8.1#L, Mean Corpuscular Volume 83, Mean Corpuscular Hemoglobin 28.1, Mean Corpuscular Hemoglobin Concent 33.7, Red Cell Distribution Width 11.6, Platelet Count 203, Mean Platelet Volume 5.7L, Neutrophils (%) (Auto) 48.7, Lymphocytes (%) (Auto) 36.7, Monocytes (%) (Auto) 9.9, Eosinophils (%) (Auto) 3.0, Basophils (%) (Auto) 1.7, Sodium Level 134L, Potassium Level 3.6, Chloride Level 101, Carbon Dioxide Level 26, Anion Gap 7, Blood Urea Nitrogen 43H, Creatinine 1.9H, Estimat Glomerular Filtration Rate 46.3, Glucose Level 104, Hemoglobin A1c 6.0, Lactic Acid Level 0.60, Uric Acid 6.4, Calcium Level 7.6#L, Phosphorus Level 2.4L, Magnesium Level 2.6H, Total Bilirubin 0.4, Gamma Glutamyl Transpeptidase 18, Aspartate Amino Transf (AST/SGOT) 30, Alanine Aminotransferase (ALT/SGPT) 36, Alkaline Phosphatase 37L, Total Creatine Kinase 497H, C-Reactive Protein, Quantitative < 0.4, Pro-B-Type Natriuretic Peptide 47, Total Protein 5.4#L, Albumin 3.3L, Globulin 2.1, Albumin/Globulin Ratio 1.6, Triglycerides Level 76, Cholesterol Level 99, LDL Cholesterol 54, HDL Cholesterol 34L, Cholesterol/HDL Ratio 2.9L, Lipase 554H, Vitamin B12 Level 1218H, Folate 6.2L, Thyroid Stimulating Hormone (TSH) 1.082 Height (Feet): 5 Height (Inches): 8.00 Weight (Pounds): 172 General Appearance: alert EENT: normal ENT inspection Neck: normal inspection Cardiovascular: normal rate Respiratory/Chest: decreased breath sounds Abdomen: normal bowel sounds, non tender, soft Extremities: non-tender Assessment/Plan Problem List: (1) Alcohol abuse ICD Codes: F10.10 - Alcohol abuse, uncomplicated SNOMED: 48410032 (2) Elevated lipase ICD Codes: R74.8 - Abnormal levels of other serum enzymes SNOMED: 827386835 (3) Hyponatremia ICD Codes: E87.1 - Hypo-osmolality and hyponatremia SNOMED: 12010422 (4) Dehydration ICD Codes: E86.0 - Dehydration SNOMED: 70925392 (5) Abdominal pain ICD Codes: R10.9 - Unspecified abdominal pain SNOMED: 96835248 Qualifiers: Qualified Codes: R10.9 - Unspecified abdominal pain Assessment/Plan: advance diet ivf repeat labs ppi GI procedures on hold Tee Hernandez MD Mar 02, 2020 10:47
[2020-03-02 12:00] VITALS: BP 126/89
--- NOTE | 2020-03-02 12:51 | NUR ---
TRANSFER TO FLOOR: Patient transferred to 206-2, per Dr nicole order. Report given to Burak GRIFFIN]. Belongings and medications given to patient. Family and or S/O informed of transfer.
--- NOTE | 2020-03-02 13:12 | NUR ---
NURSE NOTES: RECEIVED PATIENT AND REPORT FROM PADMINI GRIFFIN. PATIENT WAS TRANSFERRED FROM SDU RM 241-1 TO TEL LM112-2. PATIENT IS AAO X4 AND ABLE TO MAKE NEEDS KNOWN. DENIES ANY PAIN OR RESPIRATORY DISTRESS AT THIS TIME. SKIN IS INTACT AND WARM ON TOUCH. IV IS INTACT AND PATENT RUNNING NS @75CC/HR. BED IS IN LOWEST POSITION WITH BEDSIDE RAILS UP X2. BRAKES ENGAGED FOR SAFETY. CALL LIGHT IS WITHIN REACH WILL CONTINUE TO MONITOR PATIENT AND CONTINUE WITH THE PLAN OF CARE.
--- NOTE | 2020-03-02 13:17 | NUR ---
CASE MANAGEMENT: REVIEW 49 YEAR OLD MALE PRESENT TO ED FROM HOME CC: ABD PAIN X1 WEEK SI: WILMA . RHABDOMYOLYSIS . DEHYDRATION . T 97.9 HR 110 RR 17 BP 213/100 SAT 98% ROOM AIR H/H 19.6/58.2 NA 127 BUN 75 CR 3.2 TOTAL CREATINE KINASE 635 LIPASE 554 IS: ZOFRAN IV X1 DILAUDID IV X1 NS IVF BOLUS X1 PROTONIX IV X1 PATIENT ADMITTED TO TELEMETRY UNIT 03/01/2020 DCP: PATIENT IS FROM HOME
[2020-03-02] MEDS: Phospha 250 Neutral tab ORAL SCH ×2 (13:27→17:50)
--- NOTE | 2020-03-02 13:46 | Cardiology Report ---
APPROVED REPORT EKG Measurement Heart [id number] ME [id number] [id number] <Conclusion> Sinus tachycardia Right atrial enlargement Nonspecific T wave abnormality Abnormal ECG
[2020-03-02 16:00] VITALS: BP 127/68
--- NOTE | 2020-03-02 16:30 | History and Physical Report ---
DATE OF ADMISSION: 03/01/2020 DATE AND TIME SEEN: 03/02/2020 at 1 p.m. CONSULTANTS: 1. Tee Hernandez MD. 2. Henry Washington MD. CHIEF COMPLAINT: Alcoholic pancreatitis, WILMA. BRIEF HISTORY: This is a 49-year-old male, who lives at home admits to drinking a lot of multiple alcohol over the past several days, came with abdominal pain and nausea, diagnosed with alcoholic pancreatitis and WILMA, admitted to [facility] for further treatment. Currently, calm in bed, feeling little bit better. No chest pain. No short of breath. Slight nausea. No vomiting. No diarrhea. PAST MEDICAL HISTORY: Includes WILMA, pancreatitis, alcoholism. PAST SURGICAL HISTORY: None. MEDICATIONS: Include phosphorus, pantoprazole, folic acid, heparin, hydromorphone, Reglan. ALLERGIES: Denies. SOCIAL HISTORY: No smoking. Positive alcohol. Positive marijuana use. PHYSICAL EXAMINATION: GENERAL: Calm in bed, oriented x3, in no acute distress. VITAL SIGNS: Temperature is 98 degrees, pulse 65, respiratory rate 20, blood pressure 126/89. CARDIOVASCULAR: No murmur. LUNGS: Distant and clear. ABDOMEN: Bowel sounds positive. Nontender. Nondistended. EXTREMITIES: No cyanosis or edema. NEUROLOGIC: Patient moves all extremities, slightly weak. LABORATORY DATA: Labs at this time show hemoglobin and hematocrit 12.9/38, otherwise CBC is normal. BMP shows sodium 134, BUN/creatinine 43/1.9. Albumin 3.3. Urinalysis is 2+ blood, 2+ protein. Urine tox positive for marijuana. ASSESSMENT: 1. Alcoholic pancreatitis. 2. WILMA. 3. Malnutrition. PLAN: 1. Detox. 2. Dietary followup. 3. IV fluids. 4. Antiemetics p.r.n. 5. Pain control. 6. GI followup. 7. CBC, BMP in the morning. Blair Navarro D.O. DR: JANELL JOB#: [id number] CC:
--- NOTE | 2020-03-02 18:56 | NUR ---
NURSE HAND-OFF REPORT: Important Events on Shift:OB STOOL COLLECTED AND SENT TO LAB Patient Status: Diet: Pending Orders: Pending Results/Labs: Pending MD notification: Latest Vital Signs: Temperature 97.7 , Pulse 84 , B/P 127 /68 , Respiratory Rate 20 , O2 SAT 98 , Room Air, O2 Flow Rate . Vital Sign Comment: STABLE EKG Rhythm: Sinus Rhythm Rhythm change?: N MD Notified?: - MD Response: Latest Coronel Fall Score: 35 Fall Risk: Medium Risk Safety Measures: Call light Within Reach, Bed Alarm Zone 1, Side Rails Side Rails x2, Bed position Low and Locked. Fall Precautions: Yellow Socks Yellow Gown Door Sign Patient Fall Education Report given to .
--- NOTE | 2020-03-02 19:30 | NUR ---
NURSE NOTES: Received report from GABY Lobato. Patient is awake, alert and oriented x 4. quality assurance monitor body is in place, shows sinus rhythm with no chest pain reported. On room air, sating 97 %. On full liquid diet, instructed and amenable. IV site is on left hand g-20, running fluid of NS @ 75cc/hour that is patent and intact. Safety measures are in place, bed in lowest and locked position, side rails up x2. Call light button and bedside table within reach, instructed to call for any assistance needed. Will continue plan of care.
[2020-03-02 20:00] VITALS: BP 128/78
--- NOTE | 2020-03-02 21:00 | NUR ---
NURSE NOTES: Patient states that he has no episode of N/V since this morning. Will call Dr. Nguyen for orders.
--- NOTE | 2020-03-02 21:30 | NUR ---
NURSE NOTES: Received an order form Dr. Gross, patient may advance his diet from full liquid to regular diet. Will carry out.
[2020-03-03] VITALS: BP 131/75
[2020-03-03 04:00] VITALS: BP 138/76
[2020-03-03 07:09] LABS: BASOPHILS % (AUTO) 1.6 % (0.0-2.0); EOSINOPHILS % (AUTO) 3.1 % (0.0-3.0); HEMATOCRIT 35.2 % (42.0-52.0); HEMOGLOBIN 11.7 G/DL (14.2-18.0); LYMPHOCYTES % (AUTO) 44.3 % (20.0-45.0); MEAN CORPUSCULAR VOLUME 85 FL (80-99); MONOCYTES % (AUTO) 11.7 % (1.0-10.0); NEUTROPHILS % (AUTO) 39.2 % (45.0-75.0); PLATELET COUNT 202 K/UL (150-450); RED BLOOD COUNT 4.15 M/UL (4.70-6.10); RED CELL DISTRIBUTION WIDTH 11.8 % (11.6-14.8); WHITE BLOOD COUNT 4.2 K/UL (4.8-10.8)
--- NOTE | 2020-03-03 07:23 | NUR ---
NURSE HAND-OFF REPORT: Important Events on Shift: Patient has been resting well the whole shift, no episode of N/V reported as well. Patient is now on regular diet. Patient Status: Patient is awake on bed, in stable condition, with no complaints made at this time. Plan of care discussed. Diet: Regular diet Pending Orders: Pending Results/Labs:NONE Pending MD notification:NONE Latest Vital Signs: Temperature 99.2 , Pulse 85 , B/P 138 /76 , Respiratory Rate 19 , O2 SAT 99 , Room Air, O2 Flow Rate . Vital Sign Comment: stable EKG Rhythm: Sinus Rhythm Rhythm change?: N MD Notified?: - MD Response: Latest Coronel Fall Score: 35 Fall Risk: Medium Risk Safety Measures: Call light Within Reach, Bed Alarm Zone 1, Side Rails Side Rails x2, Bed position Low and Locked. Fall Precautions: Yellow Socks Yellow Gown Door Sign Patient Fall Education Report given to GABY Lobato.
[2020-03-03 07:24] LABS: AMYLASE 88 U/L (25-115)
--- NOTE | 2020-03-03 07:35 | NUR ---
NURSE NOTES: RECEIVED REPORT FROM VAISHALI GRIFFIN. DENIES ANY PAIN OR RESPIRATORY DISTRESS AT THIS TIME. SKIN IS INTACT. IV IS INTACT AND PATENT RUNNING NS @75CC/HR. BED IS IN LOWEST POSITION WITH BEDSIDE RAILS UP X2. BRAKES ENGAGED FOR SAFETY. CALL LIGHT IS WITHIN REACH WILL CONTINUE TO MONITOR PATIENT AND CONTINUE WITH THE PLAN OF CARE.
--- NOTE | 2020-03-03 07:42 | General Progress Note ---
Subjective ROS Limited/Unobtainable: Yes Allergies: Coded Allergies: No Known Allergies (Unverified , 06/20/19) Objective Last 24 Hour Vital Signs Date Time Temp Pulse Resp B/P (MAP) Pulse Ox O2 Delivery O2 Flow Rate FiO2 03/03/20 04:00 99.2 85 19 138/76 (96) 99 03/03/20 03:51 72 03/03/20 00:00 84 03/03/20 00:00 98.9 90 19 131/75 (93) 98 03/02/20 21:00 Room Air 03/02/20 20:00 100.2 93 20 128/78 (95) 97 03/02/20 20:00 86 03/02/20 16:00 97.7 84 20 127/68 (87) 98 03/02/20 16:00 84 03/02/20 12:00 98.4 65 18 126/89 (101) 100 65 03/02/20 12:00 77 03/02/20 12:00 Room Air 03/02/20 10:08 72 03/02/20 08:00 97.5 74 20 119/63 (81) 100 74 03/02/20 08:00 Room Air Intake and Output 03/02/20 03/03/20 18:59 06:59 Intake Total 1090 ml 825 ml Output Total 300 ml Balance 790 ml 825 ml Intake Oral 1090 ml IV Total 825 ml Output Urine Total 300 ml # Voids 1 # Bowel Movements 3 Laboratory Tests 03/02/20 08:45: Stool Occult Blood [Pending] 03/03/20 05:50: White Blood Count 4.2L, Red Blood Count 4.15L, Hemoglobin 11.7L, Hematocrit 35.2L, Mean Corpuscular Volume 85, Mean Corpuscular Hemoglobin 28.1, Mean Corpuscular Hemoglobin Concent 33.1, Red Cell Distribution Width 11.8, Platelet Count 202, Mean Platelet Volume 6.0L, Neutrophils (%) (Auto) 39.2L, Lymphocytes (%) (Auto) 44.3, Monocytes (%) (Auto) 11.7H, Eosinophils (%) (Auto) 3.1H, Basophils (%) (Auto) 1.6, Sodium Level [Pending], Potassium Level [Pending], Chloride Level [Pending], Carbon Dioxide Level [Pending], Blood Urea Nitrogen [Pending], Creatinine [Pending], Estimat Glomerular Filtration Rate [Pending], Glucose Level [Pending], Uric Acid [Pending], Calcium Level [Pending], Phosphorus Level [Pending], Magnesium Level [Pending], Total Bilirubin [Pending], Aspartate Amino Transf (AST/SGOT) [Pending], Alanine Aminotransferase (ALT/SGPT) [Pending], Alkaline Phosphatase [Pending], Total Creatine Kinase [Pending], C-Reactive Protein, Quantitative [Pending], Pro-B-Type Natriuretic Peptide [Pending], Total Protein [Pending], Albumin [Pending], Globulin [Pending], Amylase Level 88, Lipase 520H Height (Feet): 5 Height (Inches): 8.00 Weight (Pounds): 172 General Appearance: alert EENT: PERRL/EOMI Neck: supple Cardiovascular: normal rate Respiratory/Chest: lungs clear Abdomen: hypoactive bowel sounds, tender Extremities: non-tender Assessment/Plan Problem List: (1) Alcohol abuse ICD Codes: F10.10 - Alcohol abuse, uncomplicated SNOMED: 79018309 (2) Elevated lipase ICD Codes: R74.8 - Abnormal levels of other serum enzymes SNOMED: 030614464 (3) Hyponatremia ICD Codes: E87.1 - Hypo-osmolality and hyponatremia SNOMED: 34665145 (4) Dehydration ICD Codes: E86.0 - Dehydration SNOMED: 96862758 (5) Abdominal pain ICD Codes: R10.9 - Unspecified abdominal pain SNOMED: 79817905 Qualifiers: Qualified Codes: R10.9 - Unspecified abdominal pain Assessment/Plan: advance diet to reg ivf>>will dc repeat labs ppi folic acid GI procedures on hold Tee Hernandez MD Mar 03, 2020 07:42
[2020-03-03 07:50] LABS: ALANINE AMINOTRANSFERASE 27 U/L (12-78); ALBUMIN/GLOBULIN RATIO 1.2 (1.0-2.7); ALKALINE PHOSPHATASE 36 U/L (46-116); ANION GAP 5 mmol/L (5-15); ASPARTATE AMINO TRANSFERASE 26 U/L (15-37); BILIRUBIN,TOTAL 0.2 MG/DL (0.2-1.0); BLOOD UREA NITROGEN 20 mg/dL (7-18); CALCIUM 7.9 MG/DL (8.5-10.1); CARBON DIOXIDE 27 MMOL/L (21-32); CHLORIDE 109 MMOL/L (98-107); CREATINE KINASE 378 U/L (26-308); CREATININE 1.5 MG/DL (0.55-1.30); PHOSPHORUS 2.1 MG/DL (2.5-4.9); POTASSIUM 4.4 MMOL/L (3.5-5.1); SODIUM 141 MMOL/L (136-145)
[2020-03-03 08:00] VITALS: BP 113/62
[2020-03-03] MEDS: Phospha 250 Neutral tab ORAL SCH ×3 (08:20→18:17)
[2020-03-03] MEDS: Heparin 5000 units/ml inj SUBQ SCH ×2 (08:22→22:31)
--- NOTE | 2020-03-03 08:28 | Nephrology Progress Note ---
Assessment/Plan Problem List: (1) WILMA (acute kidney injury) (2) Rhabdomyolysis (3) Hyponatremia (4) Dehydration (5) Elevated lipase Assessment Acute renal failure, dehydration, possible rhabdo Hyponatremia, electrolyte imbalances EtOH abuse Abdominal pain, gastritis, history of pancreatitis Positive drug screen Plan March 03: Renal parameters improved. CPK lower. Patient's mental status baseline. Okay to discharge from renal standpoint of view. Patient will continue to abstain from using recreational drugs and increase oral liquid intake. March 02: Normal saline down to 75 cc an hour. Continue per GI. Continue to monitor renal parameters. Okay to transfer to [facility] from renal standpoint of view. Hydrate with saline Monitor renal parameters Monitor hemoglobin hematocrit Per orders Subjective ROS Limited/Unobtainable: No Objective Objective Last 24 Hour Vital Signs Date Time Temp Pulse Resp B/P (MAP) Pulse Ox O2 Delivery O2 Flow Rate FiO2 03/03/20 04:00 99.2 85 19 138/76 (96) 99 03/03/20 03:51 72 03/03/20 00:00 84 03/03/20 00:00 98.9 90 19 131/75 (93) 98 03/02/20 21:00 Room Air 03/02/20 20:00 100.2 93 20 128/78 (95) 97 03/02/20 20:00 86 03/02/20 16:00 97.7 84 20 127/68 (87) 98 03/02/20 16:00 84 03/02/20 12:00 98.4 65 18 126/89 (101) 100 65 03/02/20 12:00 77 03/02/20 12:00 Room Air 03/02/20 10:08 72 Intake and Output 03/02/20 03/03/20 19:00 07:00 Intake Total 1165 ml 750 ml Output Total 300 ml Balance 865 ml 750 ml Intake Oral 1090 ml IV Total 75 ml 750 ml Output Urine Total 300 ml # Voids 1 # Bowel Movements 3 Current Medications Medications (Trade) Dose Ordered Sig/Elliott Route PRN Reason Start Time Stop Time Status Last Admin Dose Admin Folic Acid (Folate) 1 mg DAILY ORAL 03/03/20 09:00 04/02/20 08:59 03/03/20 08:23 Heparin Sodium (Porcine) (Heparin 5000 units/ml) 5,000 units EVERY 12 HOURS SUBQ 03/02/20 09:00 04/16/20 08:59 03/03/20 08:22 Hydromorphone HCl (Dilaudid) 0.5 mg Q4H PRN IVP For Pain 03/01/20 20:30 03/08/20 20:29 Metoclopramide HCl (Reglan) 10 mg Q6H PRN IVP Nausea & Vomiting 03/01/20 14:15 03/31/20 14:14 Pantoprazole (Protonix) 40 mg EVERY 12 HOURS ORAL 03/02/20 09:30 04/01/20 09:29 03/03/20 08:20 Phosphorus (Phospha 250 Neutral) 250 mg THREE TIMES A DAY ORAL 03/02/20 13:00 04/01/20 12:59 03/03/20 08:20 Laboratory Tests 03/02/20 08:45: Stool Occult Blood [Pending] 03/03/20 05:50: White Blood Count 4.2L, Red Blood Count 4.15L, Hemoglobin 11.7L, Hematocrit 35.2L, Mean Corpuscular Volume 85, Mean Corpuscular Hemoglobin 28.1, Mean Corpuscular Hemoglobin Concent 33.1, Red Cell Distribution Width 11.8, Platelet Count 202, Mean Platelet Volume 6.0L, Neutrophils (%) (Auto) 39.2L, Lymphocytes (%) (Auto) 44.3, Monocytes (%) (Auto) 11.7H, Eosinophils (%) (Auto) 3.1H, Basophils (%) (Auto) 1.6, Sodium Level 141, Potassium Level 4.4, Chloride Level 109H, Carbon Dioxide Level 27, Anion Gap 5, Blood Urea Nitrogen 20H, Creatinine 1.5H, Estimat Glomerular Filtration Rate > 60, Glucose Level 73L, Uric Acid 5.0, Calcium Level 7.9L, Phosphorus Level 2.1L, Magnesium Level 2.1, Total Bilirubin 0.2, Aspartate Amino Transf (AST/SGOT) 26, Alanine Aminotransferase (ALT/SGPT) 27, Alkaline Phosphatase 36L, Total Creatine Kinase 378H, C-Reactive Protein, Quantitative 0.6, Pro-B-Type Natriuretic Peptide 226H, Total Protein 5.5L, Albumin 3.0L, Globulin 2.5, Albumin/Globulin Ratio 1.2, Amylase Level 88, Lipase 520H Height (Feet): 5 Height (Inches): 8.00 Weight (Pounds): 172 General Appearance: no apparent distress Cardiovascular: normal rate Respiratory/Chest: lungs clear Abdomen: soft Objective No change Henry Washington MD Mar 03, 2020 08:28
--- NOTE | 2020-03-03 08:29 | General Progress Note ---
Subjective Constitutional: Reports: weakness Allergies: Coded Allergies: No Known Allergies (Unverified , 06/20/19) All Systems: reviewed and negative except above Subjective calm in bed Objective Last 24 Hour Vital Signs Date Time Temp Pulse Resp B/P (MAP) Pulse Ox O2 Delivery O2 Flow Rate FiO2 03/03/20 04:00 99.2 85 19 138/76 (96) 99 03/03/20 03:51 72 03/03/20 00:00 84 03/03/20 00:00 98.9 90 19 131/75 (93) 98 03/02/20 21:00 Room Air 03/02/20 20:00 100.2 93 20 128/78 (95) 97 03/02/20 20:00 86 03/02/20 16:00 97.7 84 20 127/68 (87) 98 03/02/20 16:00 84 03/02/20 12:00 98.4 65 18 126/89 (101) 100 65 03/02/20 12:00 77 03/02/20 12:00 Room Air 03/02/20 10:08 72 Intake and Output 03/02/20 03/03/20 19:00 07:00 Intake Total 1165 ml 750 ml Output Total 300 ml Balance 865 ml 750 ml Intake Oral 1090 ml IV Total 75 ml 750 ml Output Urine Total 300 ml # Voids 1 # Bowel Movements 3 Laboratory Tests 03/02/20 08:45: Stool Occult Blood [Pending] 03/03/20 05:50: White Blood Count 4.2L, Red Blood Count 4.15L, Hemoglobin 11.7L, Hematocrit 35.2L, Mean Corpuscular Volume 85, Mean Corpuscular Hemoglobin 28.1, Mean Corpuscular Hemoglobin Concent 33.1, Red Cell Distribution Width 11.8, Platelet Count 202, Mean Platelet Volume 6.0L, Neutrophils (%) (Auto) 39.2L, Lymphocytes (%) (Auto) 44.3, Monocytes (%) (Auto) 11.7H, Eosinophils (%) (Auto) 3.1H, Basophils (%) (Auto) 1.6, Sodium Level 141, Potassium Level 4.4, Chloride Level 109H, Carbon Dioxide Level 27, Anion Gap 5, Blood Urea Nitrogen 20H, Creatinine 1.5H, Estimat Glomerular Filtration Rate > 60, Glucose Level 73L, Uric Acid 5.0, Calcium Level 7.9L, Phosphorus Level 2.1L, Magnesium Level 2.1, Total Bilirubin 0.2, Aspartate Amino Transf (AST/SGOT) 26, Alanine Aminotransferase (ALT/SGPT) 27, Alkaline Phosphatase 36L, Total Creatine Kinase 378H, C-Reactive Protein, Quantitative 0.6, Pro-B-Type Natriuretic Peptide 226H, Total Protein 5.5L, Albumin 3.0L, Globulin 2.5, Albumin/Globulin Ratio 1.2, Amylase Level 88, Lipase 520H Height (Feet): 5 Height (Inches): 8.00 Weight (Pounds): 172 General Appearance: alert EENT: normal ENT inspection Neck: normal alignment Cardiovascular: normal peripheral pulses, normal rate, regular rhythm Respiratory/Chest: chest wall non-tender, lungs clear, normal breath sounds Abdomen: normal bowel sounds, non tender, soft Extremities: normal inspection Edema: no edema noted Arm (L), no edema noted Arm (R), no edema noted Leg (L), no edema noted Leg (R), no edema noted Pedal (L), no edema noted Pedal (R), no edema noted Generalized Neurologic: responsive, motor weakness Skin: normal pigmentation, warm/dry Assessment/Plan Problem List: (1) Leukopenia ICD Codes: D72.819 - Decreased white blood cell count, unspecified SNOMED: 36170666, [id number] (2) Acute kidney injury ICD Codes: N17.9 - Acute kidney failure, unspecified SNOMED: 1723972, 85207148 (3) Pancreatitis ICD Codes: K85.90 - Acute pancreatitis without necrosis or infection, unspecified SNOMED: 02028947 Status: stable, progressing Assessment/Plan: adv diet pain control cbc bmp am gi heme Blair Tamez DO Mar 03, 2020 08:29
[2020-03-03] MEDS: Thiamine 100mg tab ORAL SCH (08:42)
[2020-03-03] MEDS ORDERED: FOLIC ACID1 MG ORAL (11:20)
[2020-03-03] MEDS ORDERED: VITAMIN B-1100 M2 ORAL (11:20)
--- NOTE | 2020-03-03 11:34 | Consultation ---
History of Present Illness General Chief Complaint: Abdominal Pain Present Illness Allergies: Coded Allergies: No Known Allergies (Unverified , 06/20/19) Medication History Scheduled Folic Acid* (Folic Acid*), 1 MG ORAL DAILY Thiamine Mononitrate (Vitamin B-1), 100 MG ORAL DAILY Patient History Healthcare decision maker Resuscitation status Advanced Directive on File Physical Exam Last 24 Hour Vital Signs Date Time Temp Pulse Resp B/P (MAP) Pulse Ox O2 Delivery O2 Flow Rate FiO2 03/03/20 09:00 Room Air 03/03/20 08:00 99.1 82 18 113/62 (79) 98 03/03/20 08:00 82 03/03/20 04:00 99.2 85 19 138/76 (96) 99 03/03/20 03:51 72 03/03/20 00:00 84 03/03/20 00:00 98.9 90 19 131/75 (93) 98 03/02/20 21:00 Room Air 03/02/20 20:00 100.2 93 20 128/78 (95) 97 03/02/20 20:00 86 03/02/20 16:00 97.7 84 20 127/68 (87) 98 03/02/20 16:00 84 03/02/20 12:00 98.4 65 18 126/89 (101) 100 65 03/02/20 12:00 77 03/02/20 12:00 Room Air Intake and Output 03/02/20 03/03/20 19:00 07:00 Intake Total 1165 ml 750 ml Output Total 300 ml Balance 865 ml 750 ml Intake Oral 1090 ml IV Total 75 ml 750 ml Output Urine Total 300 ml # Voids 1 # Bowel Movements 3 Laboratory Tests Test 03/03/20 05:50 White Blood Count 4.2 K/UL (4.8-10.8) L Red Blood Count 4.15 M/UL (4.70-6.10) L Hemoglobin 11.7 G/DL (14.2-18.0) L Hematocrit 35.2 % (42.0-52.0) L Mean Corpuscular Volume 85 FL (80-99) Mean Corpuscular Hemoglobin 28.1 PG (27.0-31.0) Mean Corpuscular Hemoglobin Concent 33.1 G/DL (32.0-36.0) Red Cell Distribution Width 11.8 % (11.6-14.8) Platelet Count 202 K/UL (150-450) Mean Platelet Volume 6.0 FL (6.5-10.1) L Neutrophils (%) (Auto) 39.2 % (45.0-75.0) L Lymphocytes (%) (Auto) 44.3 % (20.0-45.0) Monocytes (%) (Auto) 11.7 % (1.0-10.0) H Eosinophils (%) (Auto) 3.1 % (0.0-3.0) H Basophils (%) (Auto) 1.6 % (0.0-2.0) Sodium Level 141 MMOL/L (136-145) Potassium Level 4.4 MMOL/L (3.5-5.1) Chloride Level 109 MMOL/L (98-107) H Carbon Dioxide Level 27 MMOL/L (21-32) Anion Gap 5 mmol/L (5-15) Blood Urea Nitrogen 20 mg/dL (7-18) H Creatinine 1.5 MG/DL (0.55-1.30) H Estimat Glomerular Filtration Rate > 60 mL/min (>60) Glucose Level 73 MG/DL (74-106) L Uric Acid 5.0 MG/DL (2.6-7.2) Calcium Level 7.9 MG/DL (8.5-10.1) L Phosphorus Level 2.1 MG/DL (2.5-4.9) L Magnesium Level 2.1 MG/DL (1.8-2.4) Total Bilirubin 0.2 MG/DL (0.2-1.0) Aspartate Amino Transf (AST/SGOT) 26 U/L (15-37) Alanine Aminotransferase (ALT/SGPT) 27 U/L (12-78) Alkaline Phosphatase 36 U/L (46-116) L Total Creatine Kinase 378 U/L (26-308) H C-Reactive Protein, Quantitative 0.6 mg/dL (0.00-0.90) Pro-B-Type Natriuretic Peptide 226 pg/mL (0-125) H Total Protein 5.5 G/DL (6.4-8.2) L Albumin 3.0 G/DL (3.4-5.0) L Globulin 2.5 g/dL Albumin/Globulin Ratio 1.2 (1.0-2.7) Amylase Level 88 U/L (25-115) Lipase 520 U/L (73-393) H Height (Feet): 5 Height (Inches): 8.00 Weight (Pounds): 172 Medications Current Medications Medications (Trade) Dose Ordered Sig/Elliott Route PRN Reason Start Time Stop Time Status Last Admin Dose Admin Acetaminophen (Tylenol) 650 mg Q4H PRN ORAL Mild Pain (Pain Scale 1-3) 03/03/20 08:30 04/02/20 08:29 Folic Acid (Folate) 1 mg DAILY ORAL 03/03/20 09:00 04/02/20 08:59 03/03/20 08:23 Heparin Sodium (Porcine) (Heparin 5000 units/ml) 5,000 units EVERY 12 HOURS SUBQ 03/02/20 09:00 04/16/20 08:59 03/03/20 08:22 Metoclopramide HCl (Reglan) 10 mg Q6H PRN IVP Nausea & Vomiting 03/01/20 14:15 03/31/20 14:14 Pantoprazole (Protonix) 40 mg EVERY 12 HOURS ORAL 03/02/20 09:30 04/01/20 09:29 03/03/20 08:20 Phosphorus (Phospha 250 Neutral) 250 mg THREE TIMES A DAY ORAL 03/02/20 13:00 04/01/20 12:59 03/03/20 08:20 Thiamine HCl (Vitamin B1) 100 mg DAILY ORAL 03/03/20 09:00 04/02/20 08:59 03/03/20 08:42 Assessment/Plan Assessment/Plan: Hematology Consultation REQ : Blair Navarro RFC: Leukopenia eval DOS: 03/03/2020 ID 49-year-old male history of pancreatitis presents with recurrent epigastric pain started 7 days ago patient reports drinking after his brothers , he endorses sharp pain aggravated with alcohol no alleviating factors severity is moderate, constant he endorses nausea vomiting, no fevers no chills patient presents for evaluation and treatment, labs reviewed, no bleeding, wbc is lower, heme consulted. 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 Patient History Past Medical History: see triage record Reviewed Nursing Documentation: PMH: Agreed; PSxH: Agreed Nursing Documentation-PMH Past Medical History: No History, Except For Hx Cardiac Problems: No - pancretitis Review of Systems All Other Systems: negative except mentioned in HPI Physical Exam General: well appearing, no apparent distress, alert Heent: normocephalic, atraumatic Neck: supple, thyroid normal, supple/symm/no masses Respiratory: lungs clear, no respiratory distress, no retraction, no accessory muscle use Cardiov: normal peripheral pulses, no edema, no gallop, no murmur, tachycardia GI: soft, no guarding, no rebound, tenderness - Epigastrically Musk: normal inspection Neurologic: alert, oriented x3 Psychiatric: mood/affect normal Skin: no rash, warm/dry Labs: noted Imaging: reviewed Assessment and Recs: # Leukopenia -- multiple etiologies could be related to underlying liver disease, etoh myelosuppresion --> peripheral smear has been ordered and does not show significant abno rmalities --> Medications have been reviewed --> Continue to monitor for improvement, trend cbc --> Hep panel and HIV have been ordered --> US abd ordered to r/o cirrhosis and hepatosplenomegaly --> reverse isolation if ANC is <2000 # Anemia of chronic disease due to underlying chronic medical issues, multifactorial v Gi bleed --> Anemia workup has been ordered, rule out gi bleed --> No evidence of hemolysis is noted, peripheral smear has been reviewed. --> Hgb goal >7. Transfuse prn. --> Epogen or iron at this time is not particularly indicated --> Medications have been reviewed --> low threshold for gi evaluation in case has occult + # EToh use hx --> hold off alcohol, other substances # Abdominal pain -> likely due to gastritis --> is on ppi # WILMA --> likely due to dehydration # GI bleed --> per vosoghi, again hold off endo # Dvt ppx scds The timing of this note does not necessarily reflect the time of the patient was seen. Greatly appreciate consultation. Lew Abreu MD Mar 03, 2020 11:34
[2020-03-03 12:00] VITALS: BP 121/74
--- NOTE | 2020-03-03 14:20 | NUR ---
CASE MANAGEMENT:REVIEW 03/03/20 SI: DEHYDRATION. RHABDOMYOLYSIS HYPONATREMIA. WILMA SPIKED TEMP LAST NIGHT TO 100.2 98.7 79 18 121/74 99% ON RA WBC+20 CR+1.5 CA-7.9 IS: THIAMINE PO QD FOLATE PO QD PROTONIX PO Q12 HEPARIN SQ Q12 IVF@75/HR : TELEMETRY STATUS DCP: FROM HOME
[2020-03-03 16:00] VITALS: BP 125/68
--- NOTE | 2020-03-03 19:28 | NUR ---
NURSE HAND-OFF REPORT: Important Events on Shift:N Patient Status: Diet: REGULAR Pending Orders: Pending Results/Labs: Pending MD notification: Latest Vital Signs: Temperature 98.9 , Pulse 73 , B/P 125 /68 , Respiratory Rate 18 , O2 SAT 98 , Room Air, O2 Flow Rate . Vital Sign Comment: STABLE EKG Rhythm: Sinus Rhythm Rhythm change?: N MD Notified?: - MD Response: Latest Coronel Fall Score: 35 Fall Risk: Medium Risk Safety Measures: Call light Within Reach, Bed Alarm Zone 1, Side Rails Side Rails x2, Bed position Low and Locked. Fall Precautions: Yellow Socks Yellow Gown Door Sign Patient Fall Education Report given to . Addendum: 03/03/20 at 1944 by LUIS ANTONIO MEDINA RN HAND OFF REPORT RACIEL GRIFFIN
--- NOTE | 2020-03-03 19:30 | NUR ---
NURSE NOTES: Important Events on Shift: Receieved report from Mayela Domínguez RN. Pt dc'd IV. Patient Status: Stable Diet: regular Pending Orders: none Pending Results/Labs: none Pending MD notification: none Latest Vital Signs: Temperature 98.6 , Pulse 90 , B/P 110 /75 , Respiratory Rate 18 , O2 SAT 100 , Room Air, O2 Flow Rate . Vital Sign Comment: EKG Rhythm: Sinus rhythm Rhythm change?: N MD Notified?: - MD Response: Latest Coronel Fall Score: 35 Fall Risk: Medium Risk Safety Measures: Call light Within Reach, Bed Alarm Zone 1, Side Rails Side Rails x2, Bed position Low and Locked. Fall Precautions: yes Yellow Socks yes Yellow Gown yes Door Sign yes Patient Fall Education yes
[2020-03-03 20:00] VITALS: BP 124/78
[2020-03-04] VITALS: BP 110/75
--- NOTE | 2020-03-04 06:31 | Hematology/Onc Progress Note ---
Assessment/Plan Assessment/Plan Assessment and Recs: # Leukopenia -- multiple etiologies could be related to underlying liver disease, etoh myelosuppresion --> peripheral smear has been ordered and does not show significant abnormalities --> Medications have been reviewed --> Continue to monitor for improvement, trend cbc --> Hep panel and HIV have been ordered --> US abd ordered to r/o cirrhosis and hepatosplenomegaly --> reverse isolation if ANC is <2000 # Anemia of chronic disease due to underlying chronic medical issues, multifactorial v Gi bleed --> Anemia workup has been ordered, rule out gi bleed --> No evidence of hemolysis is noted, peripheral smear has been reviewed. --> Hgb goal >7. Transfuse prn. --> Epogen or iron at this time is not particularly indicated --> Medications have been reviewed --> low threshold for gi evaluation in case has occult + # EToh use hx --> hold off alcohol, other substances # Abdominal pain -> likely due to gastritis --> is on ppi # WILMA --> likely due to dehydration # GI bleed --> per vosoghi, again hold off endo # Dvt ppx hep sq The timing of this note does not necessarily reflect the time of the patient was seen. Greatly appreciate consultation. Subjective Constitutional: Denies: no symptoms, chills, fever, malaise, weakness, other Cardiovascular: Denies: no symptoms, chest pain, edema, irregular heart rate, lightheadedness, palpitations, syncope, other Respiratory: Denies: no symptoms, cough, shortness of breath, SOB with excertion, SOB at rest, sputum, wheezing, other Gastrointestinal/Abdominal: Denies: no symptoms, abdomen distended, abdominal pain, black stools, tarry stools, blood in stool, constipated, diarrhea, difficulty swallowing, nausea, poor appetite, poor fluid intake, rectal bleeding, vomiting, other Genitourinary: Denies: no symptoms, burning, discharge, frequency, flank pain, hematuria, incontinence, pain, urgency, other Neurologic/Psychiatric: Denies: no symptoms, anxiety, depressed, emotional problems, headache, numbness, paresthesia, pre-existing deficit, seizure, tingling, tremors, weakness, other Endocrine: Denies: no symptoms, excessive sweating, flushing, intolerance to cold, intolerance to heat, increased hunger, increased thirst, increased urine, unexplained weight gain, unexplained weight loss, other Hematologic/Lymphatic: Denies: no symptoms, anemia, easy bleeding, easy bruising, adenopathy, other Allergies: Coded Allergies: No Known Allergies (Unverified , 06/20/19) Subjective 03/04 very agitated overnight, wants to leave, no temp noted, on hep sq Objective Objective Current Medications Medications (Trade) Dose Ordered Sig/Elliott Route PRN Reason Start Time Stop Time Status Last Admin Dose Admin Acetaminophen (Tylenol) 650 mg Q4H PRN ORAL Mild Pain (Pain Scale 1-3) 03/03/20 08:30 04/02/20 08:29 03/03/20 13:55 Folic Acid (Folate) 1 mg DAILY ORAL 03/03/20 09:00 04/02/20 08:59 03/03/20 08:23 Heparin Sodium (Porcine) (Heparin 5000 units/ml) 5,000 units EVERY 12 HOURS SUBQ 03/02/20 09:00 04/16/20 08:59 03/03/20 22:31 Metoclopramide HCl (Reglan) 10 mg Q6H PRN IVP Nausea & Vomiting 03/01/20 14:15 03/31/20 14:14 Pantoprazole (Protonix) 40 mg EVERY 12 HOURS ORAL 03/02/20 09:30 04/01/20 09:29 03/03/20 22:31 Phosphorus (Phospha 250 Neutral) 250 mg THREE TIMES A DAY ORAL 03/02/20 13:00 04/01/20 12:59 03/03/20 18:17 Thiamine HCl (Vitamin B1) 100 mg DAILY ORAL 03/03/20 09:00 04/02/20 08:59 03/03/20 08:42 Last 24 Hour Vital Signs Date Time Temp Pulse Resp B/P (MAP) Pulse Ox O2 Delivery O2 Flow Rate FiO2 03/04/20 04:03 57 03/04/20 00:00 98.6 90 18 110/75 (87) 100 03/04/20 00:00 79 03/03/20 21:00 Room Air 03/03/20 20:00 86 03/03/20 20:00 99.4 74 20 124/78 (93) 99 03/03/20 16:00 98.9 73 18 125/68 (87) 98 03/03/20 16:00 73 03/03/20 12:00 79 03/03/20 12:00 98.7 79 18 121/74 (90) 99 03/03/20 09:00 Room Air 03/03/20 08:00 99.1 82 18 113/62 (79) 98 03/03/20 08:00 82 03/03/20 04:00 99.2 85 19 138/76 (96) 99 03/03/20 03:51 72 03/03/20 00:00 84 03/03/20 00:00 98.9 90 19 131/75 (93) 98 03/02/20 21:00 Room Air 03/02/20 20:00 100.2 93 20 128/78 (95) 97 03/02/20 20:00 86 03/02/20 16:00 97.7 84 20 127/68 (87) 98 03/02/20 16:00 84 03/02/20 12:00 98.4 65 18 126/89 (101) 100 65 03/02/20 12:00 77 03/02/20 12:00 Room Air 03/02/20 10:08 72 03/02/20 08:00 97.5 74 20 119/63 (81) 100 74 03/02/20 08:00 Room Air Labs Test 03/01/20 10:16 03/01/20 12:15 03/02/20 03:55 03/02/20 08:45 White Blood Count 7.6 K/UL (4.8-10.8) 6.7 K/UL (4.8-10.8) Red Blood Count 7.05 M/UL (4.70-6.10) 4.57 M/UL (4.70-6.10) Hemoglobin 19.6 G/DL (14.2-18.0) 12.9 G/DL (14.2-18.0) Hematocrit 58.2 % (42.0-52.0) 38.1 % (42.0-52.0) Mean Corpuscular Volume 83 FL (80-99) 83 FL (80-99) Mean Corpuscular Hemoglobin 27.8 PG (27.0-31.0) 28.1 PG (27.0-31.0) Mean Corpuscular Hemoglobin Concent 33.7 G/DL (32.0-36.0) 33.7 G/DL (32.0-36.0) Red Cell Distribution Width 11.5 % (11.6-14.8) 11.6 % (11.6-14.8) Platelet Count 271 K/UL (150-450) 203 K/UL (150-450) Mean Platelet Volume 6.7 FL (6.5-10.1) 5.7 FL (6.5-10.1) Neutrophils (%) (Auto) 54.2 % (45.0-75.0) 48.7 % (45.0-75.0) Lymphocytes (%) (Auto) 32.1 % (20.0-45.0) 36.7 % (20.0-45.0) Monocytes (%) (Auto) 8.4 % (1.0-10.0) 9.9 % (1.0-10.0) Eosinophils (%) (Auto) 0.6 % (0.0-3.0) 3.0 % (0.0-3.0) Basophils (%) (Auto) 4.8 % (0.0-2.0) 1.7 % (0.0-2.0) Sodium Level 127 MMOL/L (136-145) 134 MMOL/L (136-145) Potassium Level 4.3 MMOL/L (3.5-5.1) 3.6 MMOL/L (3.5-5.1) Chloride Level 89 MMOL/L (98-107) 101 MMOL/L (98-107) Carbon Dioxide Level 25 MMOL/L (21-32) 26 MMOL/L (21-32) Anion Gap 13 mmol/L (5-15) 7 mmol/L (5-15) Blood Urea Nitrogen 75 mg/dL (7-18) 43 mg/dL (7-18) Creatinine 3.2 MG/DL (0.55-1.30) 1.9 MG/DL (0.55-1.30) Estimat Glomerular Filtration Rate 25.3 mL/min (>60) 46.3 mL/min (>60) Glucose Level 144 MG/DL (74-106) 104 MG/DL (74-106) Calcium Level 10.2 MG/DL (8.5-10.1) 7.6 MG/DL (8.5-10.1) Total Bilirubin 0.8 MG/DL (0.2-1.0) 0.4 MG/DL (0.2-1.0) Aspartate Amino Transf (AST/SGOT) 32 U/L (15-37) 30 U/L (15-37) Alanine Aminotransferase (ALT/SGPT) 33 U/L (12-78) 36 U/L (12-78) Alkaline Phosphatase 57 U/L (46-116) 37 U/L (46-116) Total Creatine Kinase 635 U/L (26-308) 497 U/L (26-308) Troponin I 0.003 ng/mL (0.000-0.056) Total Protein 8.5 G/DL (6.4-8.2) 5.4 G/DL (6.4-8.2) Albumin 5.0 G/DL (3.4-5.0) 3.3 G/DL (3.4-5.0) Globulin 3.5 g/dL 2.1 g/dL Albumin/Globulin Ratio 1.4 (1.0-2.7) 1.6 (1.0-2.7) Lipase 345 U/L (73-393) 554 U/L (73-393) Urine Color Pale yellow Urine Appearance Clear Urine pH 5 (4.5-8.0) Urine Specific [place] 1.020 (1.005-1.035) Urine Protein 2+ (NEGATIVE) Urine Glucose (UA) Negative (NEGATIVE) Urine Ketones Negative (NEGATIVE) Urine Blood 2+ (NEGATIVE) Urine Nitrite Negative (NEGATIVE) Urine Bilirubin Negative (NEGATIVE) Urine Urobilinogen Normal MG/DL (0.0-1.0) Urine Leukocyte Esterase Negative (NEGATIVE) Urine RBC 2-4 /HPF (0 - 0) Urine WBC 2-4 /HPF (0 - 0) Urine Squamous Epithelial Cells Occasional /LPF Urine Bacteria Few /HPF (NONE) Urine Hyaline Casts 10-15 /LPF (NONE) Urine Random Sodium < 20 mmol/L (20-110) Urine Opiates Screen Negative (NEGATIVE) Urine Barbiturates Screen Negative (NEGATIVE) Phencyclidine (PCP) Screen Negative (NEGATIVE) Urine Amphetamines Screen Negative (NEGATIVE) Urine Benzodiazepines Screen Negative (NEGATIVE) Urine Cocaine Screen Negative (NEGATIVE) Urine Marijuana (THC) Screen Positive (NEGATIVE) Hemoglobin A1c 6.0 % (4.3-6.0) Lactic Acid Level 0.60 mmol/L (0.4-2.0) Uric Acid 6.4 MG/DL (2.6-7.2) Phosphorus Level 2.4 MG/DL (2.5-4.9) Magnesium Level 2.6 MG/DL (1.8-2.4) Gamma Glutamyl Transpeptidase 18 U/L (5-85) C-Reactive Protein, Quantitative < 0.4 mg/dL (0.00-0.90) Pro-B-Type Natriuretic Peptide 47 pg/mL (0-125) Triglycerides Level 76 MG/DL (30-150) Cholesterol Level 99 MG/DL (< 200) LDL Cholesterol 54 mg/dL (<100) HDL Cholesterol 34 MG/DL (40-60) Cholesterol/HDL Ratio 2.9 (3.3-4.4) Vitamin B12 Level 1218 PG/ML (193-986) Folate 6.2 NG/ML (8.6-58.9) Thyroid Stimulating Hormone (TSH) 1.082 uiU/mL (0.358-3.740) Stool Occult Blood Negative (NEGATIVE) Test 03/03/20 05:50 White Blood Count 4.2 K/UL (4.8-10.8) Red Blood Count 4.15 M/UL (4.70-6.10) Hemoglobin 11.7 G/DL (14.2-18.0) Hematocrit 35.2 % (42.0-52.0) Mean Corpuscular Volume 85 FL (80-99) Mean Corpuscular Hemoglobin 28.1 PG (27.0-31.0) Mean Corpuscular Hemoglobin Concent 33.1 G/DL (32.0-36.0) Red Cell Distribution Width 11.8 % (11.6-14.8) Platelet Count 202 K/UL (150-450) Mean Platelet Volume 6.0 FL (6.5-10.1) Neutrophils (%) (Auto) 39.2 % (45.0-75.0) Lymphocytes (%) (Auto) 44.3 % (20.0-45.0) Monocytes (%) (Auto) 11.7 % (1.0-10.0) Eosinophils (%) (Auto) 3.1 % (0.0-3.0) Basophils (%) (Auto) 1.6 % (0.0-2.0) Sodium Level 141 MMOL/L (136-145) Potassium Level 4.4 MMOL/L (3.5-5.1) Chloride Level 109 MMOL/L (98-107) Carbon Dioxide Level 27 MMOL/L (21-32) Anion Gap 5 mmol/L (5-15) Blood Urea Nitrogen 20 mg/dL (7-18) Creatinine 1.5 MG/DL (0.55-1.30) Estimat Glomerular Filtration Rate > 60 mL/min (>60) Glucose Level 73 MG/DL (74-106) Uric Acid 5.0 MG/DL (2.6-7.2) Calcium Level 7.9 MG/DL (8.5-10.1) Phosphorus Level 2.1 MG/DL (2.5-4.9) Magnesium Level 2.1 MG/DL (1.8-2.4) Total Bilirubin 0.2 MG/DL (0.2-1.0) Aspartate Amino Transf (AST/SGOT) 26 U/L (15-37) Alanine Aminotransferase (ALT/SGPT) 27 U/L (12-78) Alkaline Phosphatase 36 U/L (46-116) Total Creatine Kinase 378 U/L (26-308) C-Reactive Protein, Quantitative 0.6 mg/dL (0.00-0.90) Pro-B-Type Natriuretic Peptide 226 pg/mL (0-125) Total Protein 5.5 G/DL (6.4-8.2) Albumin 3.0 G/DL (3.4-5.0) Globulin 2.5 g/dL Albumin/Globulin Ratio 1.2 (1.0-2.7) Amylase Level 88 U/L (25-115) Lipase 520 U/L (73-393) HIV (1&2) Antibody Rapid Negative (NEGATIVE) Height (Feet): 5 Height (Inches): 8.00 Weight (Pounds): 172 Objective Physical Exam General: well appearing, no apparent distress, alert Heent: normocephalic, atraumatic Neck: supple, thyroid normal, supple/symm/no masses Respiratory: lungs clear, no respiratory distress, no retraction, no accessory muscle use Cardiov: normal peripheral pulses, no edema, no gallop, no murmur, yvonne GI: soft, no guarding, no rebound, tenderness - Epigastrically Musk: normal inspection Neurologic: alert, oriented x3 Psychiatric: mood/affect normal Skin: no rash, warm/dry Lew Abreu MD Mar 04, 2020 06:31
--- NOTE | 2020-03-04 07:03 | NUR ---
NURSE NOTES: Patient is irate and demanding to be discharged by MD. Called Dr. Navarro's exchange to inform him that patient desires to be discharged [facility]. Awaiting callback.
--- NOTE | 2020-03-04 07:57 | NUR ---
NURSE HAND-OFF REPORT: Important Events on Shift: Pt refuses to return to room r/t disagreement with roommate. Pt offered new room but pt refused. Called Navarro x 2, no answer. Upgraded to Jovi by RN joint supervisor Ramya. Patient Status: stable Diet: stable Pending Orders: DC Pending Results/Labs: Pending MD notification: Latest Vital Signs: Temperature 98.6 , Pulse 57 , B/P 110 /75 , Respiratory Rate 18 , O2 SAT 100 , Room Air, O2 Flow Rate . Vital Sign Comment: EKG Rhythm: Sinus Bradycardia Rhythm change?: N MD Notified?: - MD Response: Latest Coronel Fall Score: 35 Fall Risk: Medium Risk Safety Measures: Call light Within Reach, Bed Alarm Zone 1, Side Rails Side Rails x2, Bed position Low and Locked. Fall Precautions: Yellow Socks yes Yellow Gown yes Door Sign yes Patient Fall Education yes Report given to Leonides Pedro RN.
[2020-03-04 08:00] VITALS: BP 124/71
--- NOTE | 2020-03-04 08:18 | NUR ---
NURSE NOTES: Received report from Rena Nichole RN. Patient is sitting on floor next to nursing station asking to be discharged, Leia Cheng, Charge Nurse informed, BRIANNE Marina informed. Dr. Blair Navarro contacted and will be in to see the patient after 1 p.m. Patient in no apparent distress.
--- NOTE | 2020-03-04 09:04 | Nephrology Progress Note ---
Assessment/Plan Problem List: (1) WILMA (acute kidney injury) (2) Rhabdomyolysis (3) Hyponatremia (4) Dehydration (5) Elevated lipase Assessment Acute renal failure, dehydration, possible rhabdo Hyponatremia, electrolyte imbalances EtOH abuse Abdominal pain, gastritis, history of pancreatitis Positive drug screen Plan March 04: Stable for discharge from renal standpoint of view. March 03: Renal parameters improved. CPK lower. Patient's mental status baseline. Okay to discharge from renal standpoint of view. Patient will continue to abstain from using recreational drugs and increase oral liquid intake. March 02: Normal saline down to 75 cc an hour. Continue per GI. Continue to monitor renal parameters. Okay to transfer to [facility] from renal standpoint of view. Hydrate with saline Monitor renal parameters Monitor hemoglobin hematocrit Per orders Subjective ROS Limited/Unobtainable: No Objective Objective Last 24 Hour Vital Signs Date Time Temp Pulse Resp B/P (MAP) Pulse Ox O2 Delivery O2 Flow Rate FiO2 03/04/20 04:03 57 03/04/20 00:00 98.6 90 18 110/75 (87) 100 03/04/20 00:00 79 03/03/20 21:00 Room Air 03/03/20 20:00 86 03/03/20 20:00 99.4 74 20 124/78 (93) 99 03/03/20 16:00 98.9 73 18 125/68 (87) 98 03/03/20 16:00 73 03/03/20 12:00 79 03/03/20 12:00 98.7 79 18 121/74 (90) 99 Height (Feet): 5 Height (Inches): 8.00 Weight (Pounds): 172 General Appearance: no apparent distress Objective No change Henry Washington MD Mar 04, 2020 09:04
[2020-03-04] MEDS: Thiamine 100mg tab ORAL SCH (09:57)
--- NOTE | 2020-03-04 11:37 | General Progress Note ---
Subjective ROS Limited/Unobtainable: Yes Allergies: Coded Allergies: No Known Allergies (Unverified , 06/20/19) Objective Last 24 Hour Vital Signs Date Time Temp Pulse Resp B/P (MAP) Pulse Ox O2 Delivery O2 Flow Rate FiO2 03/04/20 08:00 98.2 69 18 124/71 (88) 97 03/04/20 04:03 57 03/04/20 00:00 98.6 90 18 110/75 (87) 100 03/04/20 00:00 79 03/03/20 21:00 Room Air 03/03/20 20:00 86 03/03/20 20:00 99.4 74 20 124/78 (93) 99 03/03/20 16:00 98.9 73 18 125/68 (87) 98 03/03/20 16:00 73 03/03/20 12:00 79 03/03/20 12:00 98.7 79 18 121/74 (90) 99 Height (Feet): 5 Height (Inches): 8.00 Weight (Pounds): 172 General Appearance: alert EENT: PERRL/EOMI Neck: normal alignment Cardiovascular: normal rate Respiratory/Chest: lungs clear Abdomen: normal bowel sounds, non tender, soft Extremities: non-tender Assessment/Plan Problem List: (1) Alcohol abuse ICD Codes: F10.10 - Alcohol abuse, uncomplicated SNOMED: 81992672 (2) Elevated lipase ICD Codes: R74.8 - Abnormal levels of other serum enzymes SNOMED: 630040396 (3) Hyponatremia ICD Codes: E87.1 - Hypo-osmolality and hyponatremia SNOMED: 38278283 (4) Dehydration ICD Codes: E86.0 - Dehydration SNOMED: 87058572 (5) Abdominal pain ICD Codes: R10.9 - Unspecified abdominal pain SNOMED: 66967249 Qualifiers: Qualified Codes: R10.9 - Unspecified abdominal pain Status: stable, progressing Assessment/Plan: reg diet repeat labs ppi folic acid neg stool ob GI procedures on hold Tee Hernandez MD Mar 04, 2020 11:37
--- NOTE | 2020-03-04 11:41 | NUR ---
DISCHARGE PLANNING DISCHARGE ORDER REQUESTED FROM DR SUH @ [address] SUH HE WILL COME AND ASSESS FOR DISCHARGE
--- NOTE | 2020-03-04 11:45 | NUR ---
CASE MANAGEMENT: REVIEW SI: ALCOHOL ABUSE . ABD PAIN T 98.2 HR 57 RR 18 BP 124/71 SAT 97% ROOM AIR IS: THIAMIN PO QD FOLIC ACID PO QD PROTONIX PO Q12HR TELEMETRY UNIT STATUS DCP: PATIENT IS FROM HOME
--- NOTE | 2020-03-04 12:38 | General Progress Note ---
Subjective Constitutional: Reports: weakness Allergies: Coded Allergies: No Known Allergies (Unverified , 06/20/19) All Systems: reviewed and negative except above Subjective calm in bed eating, wants to leave Objective Last 24 Hour Vital Signs Date Time Temp Pulse Resp B/P (MAP) Pulse Ox O2 Delivery O2 Flow Rate FiO2 03/04/20 10:00 78 03/04/20 09:00 Room Air 03/04/20 08:00 98.2 69 18 124/71 (88) 97 03/04/20 04:03 57 03/04/20 00:00 98.6 90 18 110/75 (87) 100 03/04/20 00:00 79 03/03/20 21:00 Room Air 03/03/20 20:00 86 03/03/20 20:00 99.4 74 20 124/78 (93) 99 03/03/20 16:00 98.9 73 18 125/68 (87) 98 03/03/20 16:00 73 Height (Feet): 5 Height (Inches): 8.00 Weight (Pounds): 172 General Appearance: alert EENT: normal ENT inspection Neck: normal alignment Cardiovascular: normal peripheral pulses, normal rate, regular rhythm Respiratory/Chest: chest wall non-tender, lungs clear, normal breath sounds Abdomen: normal bowel sounds, non tender, soft Extremities: normal inspection Edema: no edema noted Arm (L), no edema noted Arm (R), no edema noted Leg (L), no edema noted Leg (R), no edema noted Pedal (L), no edema noted Pedal (R), no edema noted Generalized Neurologic: responsive, motor weakness Skin: normal pigmentation, warm/dry Assessment/Plan Problem List: (1) Leukopenia ICD Codes: D72.819 - Decreased white blood cell count, unspecified SNOMED: 88738089, 140034860 (2) Acute kidney injury ICD Codes: N17.9 - Acute kidney failure, unspecified SNOMED: 6147469, 45915147 (3) Pancreatitis ICD Codes: K85.90 - Acute pancreatitis without necrosis or infection, unspecified SNOMED: 01394956 Status: stable, progressing Assessment/Plan: adv diet pain control cbc bmp am dc if gi clear Blair Navarro DO Mar 04, 2020 12:38
--- NOTE | 2020-03-04 14:16 | NUR ---
NURSE NOTES: Patient discharged in stable condition with belongs.
--- NOTE | 2020-03-08 08:48 | Discharge Summary ---
Discharge Summary Discharge Summary _ DATE OF ADMISSION: 03/01/2020 DATE OF DISCHARGE: 03/04/2020 DISCHARGED BY: Dr. Navarro REASON FOR ADMISSION: 49 years old male with past medical history of pancreatitis , presented with epigastric pain started about 7 days ago. Patient reported drinking alcohol after his brother . Patient reported sharp pain aggravated with alcohol , constant and associated with nausea and nonbloody nonbilious vomiting. No fever or chills. Laboratory work-up revealed no leukocytosis ,hemoglobin 19.6, hematocrit 58.2 ,platelet count 271. Sodium 127 , chloride 89. BUN 75, creatinine 3.2. Glucose 144. Stable AST and ALT , lipase 345. Total CK 635. Troponin negative, EKG revealed sinus tachycardia with heart rate 105. Urine toxicology screen was positive for THC . Rapid COVID-19 was negative . Chest x-ray revealed no acute cardiopulmonary pathology. CT scan of the abdomen and pelvis revealed no definite acute intraabdominal abnormality. In emergency department patient received analgesic, antiemetic, 1 L of fluid and admitted to telemetry floor for further management. CONSULTANTS: GI specialist Dr. Hernandez dry placer machine operator Dr. Washington dyslexia teacher/oncologist Dr. Abreu [facility] COURSE: Patient admitted to telemetry floor. Patient started on aggressive IV hydration with a saline solution. Pain management was addressed as needed. Symptomatic treatment provided. Patient initially was kept n.p.o. and slowly started on diet and was advanced as tolerated. Patient started on proton pump inhibitors. Antiemetic provided as needed. Renal parameters and electrolytes were closely monitored. Nephrotoxic's were avoided. Electrolytes corrected as needed.. With IV hydration sodium up to 141. CK trended down to 378 from initial 635. With IV hydration hemoglobin down to 11.7 , hematocrit 35.2. Stool for occult blood was negative. Patient was found to have folate deficiency. Patient started on folic acid supplements as well as a thiamine. GI specialist recommended consider GI procedure as outpatient . No need for urgent GI procedure at this time. Patient demonstrated mild leukopenia with WBC 4.2. Hepatitis panel was negative, HIV test was negative. Leukopenia was possibly due to underlying liver disease versus EtOH myelosuppression. Patient was counseled on alcohol cessation and limit use of marijuana. Abdominal pain was most likely due to gastritis . Patient was recommended to continue PPI. Patient clinically stabilized: was able to tolerate diet, and pain resolved. Patient was ready for discharge home. FINAL DIAGNOSES: Acute renal failure likely due to dehydration Rhabdomyolysis Dehydration Hyponatremia-resolved Anemia of chronic disease Folate deficiency ETOH abuse Abdominal pain History of pancreatitis Gastritis Marijuana user DISCHARGE MEDICATIONS: See Medication Reconciliation list. DISCHARGE INSTRUCTIONS: Patient was discharged home. Follow-up with a primary care provider in 1 week. I have been assigned to dictate discharge summary for this account. I was not involved in the patient's management. Shabana Garcia NP Mar 08, 2020 08:48
== END 2020-03-04 14:10 | disposition home or self-care (01) | DRG 282 ==
LOC: EMR 10:05 → EDBEDREQ 10:22 → EDBEDREQSVC 10:22 → EDBEDREQ 14:21 → 2W 14:45 → 2E 03-02 12:31
DX: K85.20 Alcohol induced acute pancreatitis without necrosis or infection (principal); N17.9 Acute kidney failure, unspecified; K29.70 Gastritis, unspecified, without bleeding; E87.1 Hypo-osmolality and hyponatremia; M62.82 Rhabdomyolysis; D72.819 Decreased white blood cell count, unspecified; E46 Unspecified protein-calorie malnutrition; D63.8 Anemia in other chronic diseases classified elsewhere; E86.0 Dehydration; K92.2 Gastrointestinal hemorrhage, unspecified; F10.10 Alcohol abuse, uncomplicated; E53.8 Deficiency of other specified B group vitamins; F12.90 Cannabis use, unspecified, uncomplicated
CPT/HCPCS: 36415; 71045; 74176; 80053; 80061; 80307; 81003; 82150; 82270; 82550; 82607; 82746; 82977; 83036; 83605; 83690; 83735; 83880; 84100; 84300; 84443; 84484; 84550; 85025; 86140; 86703; 86705; 86709; 86803; 87081; 87340; 93005; 96361; 96374; 96375; 99291; C9399; J2405; J7030; U0002